=== PATIENT | female | born 1990 | race African-American/Black ===

== ENCOUNTER 2016-05-25 14:05 | Emergency (ER) | payer SELFPAY ==
[~2016-05-25] VITALS: Ht 162.6 cm; Wt 90.0 kg
[~2016-05-25 14:05] MED LIST: ALBU0.086 INH; MONT10 PO; PRED5PAK PO; VENTAER INH
[2016-05-25 14:06] VITALS: BP 132/83; PULSE 84; RESP 20; TEMP 97.5; O2SAT 100
--- NOTE | 2016-05-25 14:18 | PD ---
HPI Chief Complaint: Skin Problem Time Seen by Provider: 14:16 Travel History International Travel<30 days: No Contact w/Intl Traveler<30days: No Traveled to known affect area: No History of Present Illness HPI Patient comes in for evaluation of possible abscess to right groin that first started yesterday. Patient states that it started off as what she thought was a hair bump, but has progressively got bigger and more painful. Patient tried taking pain medication for this with no improvement of her symptoms. Denies doing anything else for it. Patient states she's had similar happen a long time ago. Denies any fevers, dysuria, , drainage from the lesion, vaginal discharge, or abdominal pain. PFSH Past Medical History Asthma: Yes Blood Disorders: No Cancer: No Cardiovascular Problems: No Chest Pain: Yes COPD: No Cerebrovascular Accident: No Diabetes: No (gestational) Diminished Hearing: No Endocrine: No Genitourinary: No Headaches: Yes Immune Disorder: No Musculoskeletal: No Neurologic: No Psychiatric: No Reproductive: No Respiratory: Yes (asthma) Migraines: No Seizures: No Sleep Apnea: No ?: Not LMP: 05/14/16 Menopausal: No : 2 Para: 2 Miscarriage: 0 : 0 Past Surgical History Abdominal Surgery: No Cardiac Surgery: No Section: Yes Ear Surgery: No Endocrine Surgery: No Eye Surgery: No Genitourinary Surgery: No Gynecologic Surgery: Yes (c-cection 3 mos ago) Oral Surgery: No Thoracic Surgery: No Other Surgery: No Social History Alcohol Use: No Tobacco Use: No Substance Use: No Allergies-Medications (Allergen,Severity, Reaction): Coded Allergies: No Known Allergies (Verified , 05/25/16) Reported Meds & Prescriptions Reported Meds & Active Scripts Active Naprosyn (Naproxen) 500 Mg Tab 500 Mg PO Q12HR PRN Keflex (Cephalexin) 500 Mg Cap 500 Mg PO Q8H Bactrim DS (Sulfamethoxazole-Trimethoprim) 800-160 Mg Tab 1 Tab PO BID Review of Systems Except as stated in HPI: all other systems reviewed are Neg Physical Exam Narrative GENERAL: Well-developed, overly nourished, in no acute distress, and non-ill appearing. SKIN: Warm and dry. Small approximately 2 cm in greatest diameter early abscess noted just superior to the right labia. It is tender to palpation, tender area with minimal fluctuation noted. There is no crepitus or drainage. Exam was performed presence of nurse staff industrialSHAN[employer] Valencia at all times. HEAD: Atraumatic. Normocephalic. EYES: Pupils equal and round. EOMI. No scleral icterus. No injection or drainage. ENT: No nasal bleeding or discharge. Mucous membranes pink and moist. NECK: Trachea midline. Supple. No nuclear rigidity. RESPIRATORY: No accessory muscle use. No respiratory distress. MUSCULOSKELETAL: No obvious deformities. No clubbing. No cyanosis. No edema. Full range of motion. NEUROLOGICAL: Awake and alert. No obvious cranial nerve deficits. Motor grossly within normal limits. Normal speech. PSYCHIATRIC: Appropriate mood and affect; insight and judgment normal. Data Data Last Documented VS Vital Signs Date Time Temp Pulse Resp B/P Pulse Ox O2 Delivery O2 Flow Rate FiO2 05/25/16 14:06 97.5 84 20 132/83 100 Room Air MDM Medical Decision Making Medical Screen Exam Complete: Yes Emergency Medical Condition: Yes Differential Diagnosis Abscess, cellulitis, folliculitis, other Narrative Course I&D was recommended, however patient is refusing and is wanting to try oral antibiotics and warm compresses first. Patient agrees to come back in 2 days for recheck or sooner if her symptoms get worse or develops fevers or for other concerns. The patient has no evidence of significant cellulitis. There is no evidence of necrotizing fasciitis/ Forneys at this time. The patient will be discharged on antibiotics. The patient was given signs and symptoms warnings for worsening infection, such as spreading of redness, increasing pain, and/or swelling, associated heat, or fever or feels worse, and instructed to return immediately if these signs or symptoms worsen. The patient is to return in 2 days for recheck. Sooner if worsens or as needed. The patient agrees with plan. Patient in no obvious distress upon re-evaluation. Patient was asked if they wanted to speak to my attending, which the patient did not wish to do at this time. Any questions/concerns in reference to patient diagnosis/condition discussed and clarified prior to patient's discharge. Reinforced sheer importance of close follow up with patient's primary physician or primary care clinic. Instructed patient to return to ED immediately, if symptoms return/ worsen. Pt showed understanding of above instructions. Further instructions and recommendations were detailed in discharge paperwork. Pt ambulated without difficulty out of ED at discharge. Diagnosis Primary Impression: Abscess Patient Instructions: Abscess (GEN), Abscess Follow-up (ED), General Instructions Additional Instructions: Follow-up here in 2 days for recheck. Take all medication as prescribed. Apply warm compresses to affected area multiple times daily. Return to the emergency department if symptoms get worse. Med/Other Pt SpecificInfo: Prescription(s) given Scripts Naproxen (Naprosyn)500 Mg [id number] Mg PO Q12HR PRN (PAIN SCALE 1 TO 10) #14 TAB Ref 0 Prov:Qi Wetzel MD 05/25/16 Cephalexin (Keflex)500 Mg [id number] Mg PO Q8H #30 CAP Ref 0 Prov:Qi Wetzel MD 05/25/16 Sulfamethoxazole-Trimethoprim (Bactrim DS)800-160 Mg Tab1 Tab PO BID #20 TAB Ref 0 Prov:Qi Wetzel MD 05/25/16 Disposition: 01 DISCHARGE HOME Condition: Stable Eder Miles May 25, 2016 14:17
[2016-05-25] MEDS ORDERED: NAPR500 PO (14:53)
[2016-05-25] MEDS ORDERED: BACT800T5 PO (14:53)
[2016-05-25] MEDS ORDERED: CEPH-460 PO (14:53)
== END 2016-05-25 15:35 | disposition home or self-care (01) ==
LOC: NEPB 14:05
DX: L02.214 Cutaneous abscess of groin (principal)
CPT/HCPCS: 99282

== ENCOUNTER 2017-07-19 07:55 | Emergency (ER) | payer SELFPAY ==
[2017-07-19] VITALS (8 sets, daily range): BP systolic 120–151; BP diastolic 58–92; PULSE 96–124; RESP 14–30; TEMP 98.4; O2SAT 94–98
[~2017-07-19] VITALS: Ht 162.6 cm; Wt 96.0 kg
[~2017-07-19 07:55] MED LIST changes: -ALBU0.086 INH; +BACT800T5 PO; +CEPH-460 PO; -MONT10 PO; +NAPR500 PO; -PRED5PAK PO; -VENTAER INH
[2017-07-19] MEDS ORDERED: ALBU0.08 NEB (08:05)
[2017-07-19] MEDS ORDERED: ADVA250A INH (08:12)
[2017-07-19] MEDS ORDERED: predniSONE 20 MG TAB PO ONE (08:15)
[2017-07-19] MEDS ORDERED: SODIUM CHLORIDE 0.9% FLUSH 10 ML FLUSH IVF PRN (08:15)
[2017-07-19] MEDS: RESP: ALBUTEROL 2.5 MG/IPRATROPIUM 0.5 MG NEB (SCH) INH ×2 (08:15→08:24)
--- NOTE | 2017-07-19 08:15 | PD ---
HPI Chief Complaint: Respiratory Symptoms Time Seen by Provider: 08:09 Travel History International Travel<30 days: No Contact w/Intl Traveler<30days: No Traveled to known affect area: No History of Present Illness HPI Patient is a 27-year-old female with a history of asthma presents emergency department with shortness of breath for the past 36 hours. Patient states she been taking her inhalers as well as breathing treatments at home with minimal relief. She states that the last asthma exacerbation she had she ended up intubated. States symptoms are gradually worsening. No fevers. She denies any chest pain abdominal pain nausea or vomiting. States symptoms are moderate , worsening over the past 36 hours, context as above [facility] Past Medical History Asthma: Yes Blood Disorders: No Cancer: No Cardiovascular Problems: No Chest Pain: Yes COPD: No Cerebrovascular Accident: No Diminished Hearing: No Endocrine: No Genitourinary: No Headaches: Yes Immune Disorder: No Musculoskeletal: No Neurologic: No Psychiatric: No Reproductive: No Respiratory: Yes (asthma) Migraines: No Seizures: No Sleep Apnea: No ?: Not LMP: 07/17/17 Menopausal: No : 2 Para: 2 Miscarriage: 0 : 0 Past Surgical History Abdominal Surgery: No Cardiac Surgery: No Section: Yes (X 1) Ear Surgery: No Endocrine Surgery: No Eye Surgery: No Genitourinary Surgery: No Gynecologic Surgery: Yes Oral Surgery: No Thoracic Surgery: No Other Surgery: No Social History Alcohol Use: No Tobacco Use: No Substance Use: No Allergies-Medications (Allergen,Severity, Reaction): Coded Allergies: No Known Allergies (Verified Adverse Reaction, Unknown, 07/19/17) Reported Meds & Prescriptions Reported Meds & Active Scripts Active Prednisone 20 Mg Tab 60 Mg PO DAILY 5 Days Reported Advair Diskus Inh (Fluticasone-Salmeterol Inh) 250-50 Mcg/Blist Aer 1 Puff INH BID PRN Rinse mouth after use. Albuterol Neb (Albuterol Sulfate) 2.5 Mg/3 Ml Neb 2.5 Mg NEB Q4HR NEB PRN Review of Systems Except as stated in HPI: all other systems reviewed are Neg Physical Exam Narrative GENERAL: Well-developed well-nourished, no obvious distress. SKIN: Focused skin assessment warm/dry. HEAD: Atraumatic. Normocephalic. EYES: Pupils equal and round. No scleral icterus. No injection or drainage. ENT: No nasal bleeding or discharge. Mucous membranes pink and moist. NECK: Trachea midline. No JVD. CARDIOVASCULAR: Regular rate and rhythm. No murmur appreciated. RESPIRATORY: No accessory muscle use. Expiratory wheezing and rhonchi worse than inspiratory, air entry is good bilaterally. Breath sounds equal bilaterally. No retractions apparent. The patient is mildly tachypneic. GASTROINTESTINAL: Abdomen soft, non-tender, nondistended. Hepatic and splenic margins not palpable. MUSCULOSKELETAL: No obvious deformities. No clubbing. No cyanosis. No edema. NEUROLOGICAL: Awake and alert. No obvious cranial nerve deficits. Motor grossly within normal limits. Normal speech. PSYCHIATRIC: Appropriate mood and affect; insight and judgment normal. Data Data Last Documented VS Vital Signs Date Time Temp Pulse Resp B/P (MAP) Pulse Ox O2 Delivery O2 Flow Rate FiO2 07/19/17 13:41 07/19/17 12:00 96 14 98 Nasal Cannula 2.00 07/19/17 07:56 98.4 Orders Orders Electrocardiogram (07/19/17 08:13) Complete Blood Count With Diff (07/19/17 08:13) Comprehensive Metabolic Panel (07/19/17 08:13) Chest, Single Ap (07/19/17 08:13) Ecg Monitoring (07/19/17 08:13) Iv Access Insert/Monitor (07/19/17 08:13) Oximetry (07/19/17 08:13) Oxygen Administration (07/19/17 08:13) Prednisone (Deltasone) (07/19/17 08:15) Albuterol-Ipratropium Neb (Duoneb Neb) (07/19/17 08:15) Sodium Chloride 0.9% Flush (Ns Flush) (07/19/17 08:15) Magnesium Sulfate 1 Gm Premix (Magnesium (07/19/17 08:30) Albuterol-Ipratropium Neb (Duoneb Neb) (07/19/17 11:15) Ed Discharge Order (07/19/17 12:10) Labs Laboratory Tests Test 07/19/17 08:25 White Blood Count 13.5 TH/MM3 Red Blood Count 4.31 MIL/MM3 Hemoglobin 12.4 GM/DL Hematocrit 37.2 % Mean Corpuscular Volume 86.3 FL Mean Corpuscular Hemoglobin 28.7 PG Mean Corpuscular Hemoglobin Concent 33.2 % Red Cell Distribution Width 14.6 % Platelet Count 290 TH/MM3 Mean Platelet Volume 7.7 FL Neutrophils (%) (Auto) 62.0 % Lymphocytes (%) (Auto) 25.2 % Monocytes (%) (Auto) 5.1 % Eosinophils (%) (Auto) 6.9 % Basophils (%) (Auto) 0.8 % Neutrophils # (Auto) 8.4 TH/MM3 Lymphocytes # (Auto) 3.4 TH/MM3 Monocytes # (Auto) 0.7 TH/MM3 Eosinophils # (Auto) 0.9 TH/MM3 Basophils # (Auto) 0.1 TH/MM3 CBC Comment DIFF FINAL Differential Comment Blood Urea Nitrogen 11 MG/DL Creatinine 0.88 MG/DL Random Glucose 120 MG/DL Total Protein 7.8 GM/DL Albumin 3.8 GM/DL Calcium Level 8.6 MG/DL Alkaline Phosphatase 78 U/L Aspartate Amino Transf (AST/SGOT) 16 U/L Alanine Aminotransferase (ALT/SGPT) 15 U/L Total Bilirubin 0.2 MG/DL Sodium Level 139 MEQ/L Potassium Level 4.3 MEQ/L Chloride Level 107 MEQ/L Carbon Dioxide Level 24.9 MEQ/L Anion Gap 7 MEQ/L Estimat Glomerular Filtration Rate 92 ML/MIN MDM Medical Decision Making Medical Screen Exam Complete: Yes Emergency Medical Condition: Yes Interpretation(s) Patient's EKG shows sinus tachycardia with normal axis normal R-wave progression. No concerning ST segment changes. Intervals otherwise within normal limits. This is a normal EKG except for rate. Differential Diagnosis Asthma exacerbation, pneumonia, CHF. Narrative Course Patient room to the emergency department, course expiratory wheezes and rhonchi , it is clearing with DuoNeb treatments. She was observed in the emergency department for several hours, she is gradually showing great improvement, her saturations have improved to 96% on room air, she was given magnesium and steroids as well, my second reassessment she is sleeping soundly arouses to voice states she is feeling much better would like to go home. She still has some expiratory wheezing but her air entry is significantly improved. Discussed with the patient steroids as well as dramatic management with albuterol and she has both an inhaler and nebulizer fluid at home. Discussed returning to criteria follow-up with a primary care physician. She is stable for discharge. Diagnosis Primary Impression: Asthma exacerbation Qualified Codes: J45.901 - Unspecified asthma with (acute) exacerbation Additional Instructions: Follow-up with your primary care physician on Friday or the [facility] Med/Other Pt SpecificInfo: Prescription(s) given Scripts Prednisone (Prednisone) 20 Mg Tab 60 MG PO DAILY for 5 Days, #15 TAB 0 Refills Prov: Alex Murrell MD 07/19/17 Disposition: 01 DISCHARGE HOME Condition: Stable Alex Murrell MD Jul 19, 2017 08:15
[2017-07-19 08:32] LABS: AUTOMATED NEUTROPHIL # 8.4 TH/MM3 (1.8-7.7); BASOPHIL # 0.1 TH/MM3 (0-0.2); BASOPHIL % 0.8 % (0.0-2.0); EOSINOPHIL # 0.9 TH/MM3 (0-0.4); EOSINOPHIL % 6.9 % (0.0-4.0); HEMATOCRIT 37.2 % (35.0-46.0); HEMOGLOBIN 12.4 GM/DL (11.6-15.3); LYMPH % 25.2 % (9.0-44.0); LYMPHOCYTE # 3.4 TH/MM3 (1.0-4.8); MEAN CELL VOLUME 86.3 FL (80.0-100.0); MEAN CORPUSCULAR HEMOGLOBIN 28.7 PG (27.0-34.0); MEAN CORPUSCULAR HGB CONC 33.2 % (32.0-36.0); MEAN PLATELET VOLUME 7.7 FL (7.0-11.0); MONO % 5.1 % (0.0-8.0); MONOCYTE # 0.7 TH/MM3 (0-0.9); PLATELET COUNT 290 TH/MM3 (150-450); RED BLOOD COUNT 4.31 MIL/MM3 (4.00-5.30); RED CELL DISTRIBUTION WIDTH 14.6 % (11.6-17.2); WHITE BLOOD COUNT 13.5 TH/MM3 (4.0-11.0)
[2017-07-19] MEDS: MAGNESIUM SULFATE 1 GM PREMIX 100 ML IV SCH ×2 (08:35→09:45)
--- NOTE | 2017-07-19 08:45 | RADRPT ---
EXAM DATE/TIME: 07/19/2017 08:30 [facility] COMPARISON: CHEST SINGLE AP, December 01, 2015, 15:28. INDICATIONS : Wheezing. Chest pain. MEDICAL HISTORY : Asthma. SURGICAL HISTORY : None. ENCOUNTER: Initial ACUITY: 2 days PAIN SCORE: 7/10 LOCATION: Bilateral chest FINDINGS: A single view of the chest demonstrates the lungs to be symmetrically aerated without evidence of mas s, infiltrate or effusion. The cardiomediastinal contours are unremarkable. Osseous structures are intact. Overlying electrocardiogram leads and oxygen tubing are again noted. CONCLUSION: No acute disease. There is no evidence of pneumonia. Jb Rivera MD on July 19, 2017 at 8:42 Board Certified Radiologist. This report was verified electronically.
[2017-07-19 08:50] LABS: ALBUMIN 3.8 GM/DL (3.4-5.0); ALT (GPT) 15 U/L (10-53); AST (GOT) 16 U/L (15-37); BICARBONATE 24.9 MEQ/L (21.0-32.0); BLOOD UREA NITROGEN 11 MG/DL (7-18); CALCIUM 8.6 MG/DL (8.5-10.1); CHLORIDE 107 MEQ/L (98-107); CREATININE 0.88 MG/DL (0.50-1.00); GLOMERULAR FILTRATION RATE 92 ML/MIN (>89); GLUCOSE,RANDOM 120 MG/DL (74-106); SODIUM (NA) 139 MEQ/L (136-145)
[2017-07-19 08:52] LABS: ALKALINE PHOSPHATASE 78 U/L (45-117); TOTAL BILIRUBIN ADULT 0.2 MG/DL (0.2-1.0); TOTAL PROTEIN 7.8 GM/DL (6.4-8.2)
[2017-07-19] MEDS ORDERED: RESP: ALBUTEROL 2.5 MG/IPRATROPIUM 0.5 MG NEB (SCH) NEB ONE (11:15)
[2017-07-19] MEDS ORDERED: PRED20 PO (12:11)
--- NOTE | 2017-07-19 16:58 | EKG ---
Date Performed: 07/19/2017 Time Performed: 08:51:31 PTAGE: 27 years EKG: SINUS TACHYCARDIA ABNORMAL RHYTHM ECG Since the PREVIOUS TRACING , no significant change noted PREVIOUS TRACIN03/28/2015 10.57 DOCTOR: Cameron Gaffney Interpretating Date/Time 07/19/2017 16:54:58
== END 2017-07-19 13:55 | disposition home or self-care (01) ==
LOC: NEPE 07:55
DX: J45.901 Unspecified asthma with (acute) exacerbation (principal); R00.0 Tachycardia, unspecified; R94.31 Abnormal electrocardiogram [ECG] [EKG]
CPT/HCPCS: 71045; 80053; 85025; 93005; 94640; 94664; 96365; 99285; J3475; J7512

== ENCOUNTER 2017-08-02 22:07 | Inpatient (IN) | payer SELFPAY ==
[~2017-08-02] VITALS: Ht 162.6 cm; Wt 100.6 kg
[~2017-08-02 22:07] MED LIST changes: +ADVA250A INH; +ALBU0.08 NEB; -BACT800T5 PO; -CEPH-460 PO; -NAPR500 PO; +PRED20 PO
[2017-08-02 22:25] VITALS: BP 154/93; PULSE 126; RESP 22; TEMP 98.9; O2SAT 97
[2017-08-02 22:26] VITALS: O2SAT 97
[2017-08-02] MEDS ORDERED: methylPREDNISolone SOD SUCC 125 MG/2 ML VIAL IV PUSH ONE (22:45)
[2017-08-02] MEDS ORDERED: SODIUM CHLORIDE 0.9% FLUSH 10 ML FLUSH IVF PRN (22:45)
--- NOTE | 2017-08-02 22:48 | PD ---
HPI Chief Complaint: Respiratory Symptoms Time Seen by Provider: 22:39 Travel History International Travel<30 days: No Contact w/Intl Traveler<30days: No Traveled to known affect area: No History of Present Illness HPI 27-year-old female complains of coughing congestion and shortness of breath. Patient has a history of asthma. Patient has been using nebulizer at home and inhaler at work. Patient was at work this evening and started having increasing shortness of breath and wheezing. Patient denies any headache. Patient denies any chest pain. Patient denies abdominal pain. Patient denies any fever chills. Patient denies any chance of being . PFSH Past Medical History Asthma: Yes Blood Disorders: No Cancer: No Cardiovascular Problems: No Chest Pain: Yes COPD: No Cerebrovascular Accident: No Diminished Hearing: No Endocrine: No Genitourinary: No Headaches: Yes Immune Disorder: No Musculoskeletal: No Neurologic: No Psychiatric: No Reproductive: No Respiratory: Yes (asthma) Immunizations Current: Yes Migraines: No Seizures: No Sleep Apnea: No ?: Not LMP: 07/22/17 Menopausal: No : 2 Para: 2 Miscarriage: 0 : 0 Past Surgical History Abdominal Surgery: No Cardiac Surgery: No Section: Yes (X 1) Ear Surgery: No Endocrine Surgery: No Eye Surgery: No Genitourinary Surgery: No Gynecologic Surgery: Yes Oral Surgery: No Thoracic Surgery: No Other Surgery: Yes ( Nov 2014 ) Social History Alcohol Use: Yes Tobacco Use: No Substance Use: No Allergies-Medications (Allergen,Severity, Reaction): Coded Allergies: No Known Allergies (Verified Adverse Reaction, Unknown, 08/02/17) Reported Meds & Prescriptions Reported Meds & Active Scripts Active Reported Advair Diskus Inh (Fluticasone-Salmeterol Inh) 250-50 Mcg/Blist Aer 1 Puff INH BID PRN Rinse mouth after use. Albuterol Neb (Albuterol Sulfate) 2.5 Mg/3 Ml Neb 2.5 Mg NEB Q4HR NEB PRN Review of Systems General / Constitutional: No: Fever Eyes: No: Visual changes HENT: No: Headaches Cardiovascular: No: Chest Pain or Discomfort Respiratory: Positive: Cough, Shortness of Breath, Wheezing Gastrointestinal: No: Abdominal Pain Genitourinary: No: Dysuria Musculoskeletal: No: Pain Skin: No Rash Neurologic: No: Weakness Psychiatric: No: Depression Endocrine: No: Polydipsia Hematologic/Lymphatic: No: Easy Bruising Physical Exam Narrative GENERAL: Well-nourished, well-developed patient. SKIN: Focused skin assessment warm/dry. HEAD: Normocephalic. EYES: No scleral icterus. No injection or drainage. NECK: Supple, trachea midline. No JVD or lymphadenopathy. CARDIOVASCULAR: Regular rate and rhythm without murmurs, gallops, or rubs. RESPIRATORY: Patient has moderate expiratory wheezes bilaterally. No rhonchi. GASTROINTESTINAL: Abdomen soft, non-tender, nondistended. MUSCULOSKELETAL: No cyanosis, or edema. BACK: Nontender without obvious deformity. No CVA tenderness. Data Data Last Documented VS Vital Signs Date Time Temp Pulse Resp B/P (MAP) Pulse Ox O2 Delivery O2 Flow Rate FiO2 08/02/17 23:39 18 98 Nasal Cannula 2.00 08/02/17 22:25 98.9 126 154/93 (113) Orders Orders Sodium Chloride 0.9% Flush (Ns Flush) (08/02/17 22:45) Methylprednisolone So Succ Inj (Solumedr (08/02/17 22:45) Albuterol-Ipratropium Neb (Duoneb Neb) (08/02/17 22:45) Complete Blood Count With Diff (08/02/17 23:38) Basic Metabolic Panel (Bmp) (08/02/17 23:38) Chest, Single Ap (08/02/17 23:38) Iv Access Insert/Monitor (08/02/17 23:38) Ecg Monitoring (08/02/17 23:38) Oximetry (08/02/17 23:38) Ceftriaxone Inj (Rocephin Inj) (08/03/17 00:00) Azithromycin (Zithromax) (08/03/17 00:00) Labs Laboratory Tests Test 08/02/17 23:35 White Blood Count 19.0 TH/MM3 Red Blood Count 4.52 MIL/MM3 Hemoglobin 12.7 GM/DL Hematocrit 38.8 % Mean Corpuscular Volume 85.8 FL Mean Corpuscular Hemoglobin 28.2 PG Mean Corpuscular Hemoglobin Concent 32.8 % Red Cell Distribution Width 14.4 % Platelet Count 295 TH/MM3 Mean Platelet Volume 8.1 FL Neutrophils (%) (Auto) 56.6 % Lymphocytes (%) (Auto) 33.7 % Monocytes (%) (Auto) 4.2 % Eosinophils (%) (Auto) 5.3 % Basophils (%) (Auto) 0.2 % Neutrophils # (Auto) 10.7 TH/MM3 Lymphocytes # (Auto) 6.4 TH/MM3 Monocytes # (Auto) 0.8 TH/MM3 Eosinophils # (Auto) 1.0 TH/MM3 Basophils # (Auto) 0.0 TH/MM3 CBC Comment AUTO DIFF Blood Urea Nitrogen 10 MG/DL Creatinine 0.98 MG/DL Random Glucose 101 MG/DL Calcium Level 9.0 MG/DL Sodium Level 142 MEQ/L Potassium Level 4.1 MEQ/L Chloride Level 105 MEQ/L Carbon Dioxide Level 29.9 MEQ/L Anion Gap 7 MEQ/L Estimat Glomerular Filtration Rate 81 ML/MIN MDM Medical Decision Making Medical Screen Exam Complete: Yes Emergency Medical Condition: Yes Interpretation(s) 12:38 AM. Chest x-ray shows no acute consolidation. CBC with WBC 19.0. Normal differential. BMP within normal limits. Differential Diagnosis Differential diagnosis including acute exacerbation asthma, bronchitis, pneumonia, pneumothorax. Narrative Course 27-year-old female with wheezing and shortness of breath. History of asthma. Albuterol with Atrovent unit dose treatment 3. Solu-Medrol 125 mg IV. 23:39 PM. Reexamination patient still has moderate amount of wheezes bilaterally and shortness of breath. Patient will be admitted. Diagnosis Primary Impression: Acute asthma exacerbation Qualified Codes: J45.41 - Moderate persistent asthma with (acute) exacerbation Admitting Information Admitting Physician Requests: Admit Maxim Mccray MD August 02, 2017 22:48
[2017-08-02] MEDS: RESP: ALBUTEROL 2.5 MG/IPRATROPIUM 0.5 MG NEB (SCH) INH (22:49)
[2017-08-02 22:52] VITALS: O2SAT 99
[2017-08-02 23:39] VITALS: RESP 18; O2SAT 98
[2017-08-03] VITALS (13 sets, daily range): BP systolic 118–149; BP diastolic 57–78; PULSE 92–120; RESP 18–20; TEMP 97.5–98.2; O2SAT 94–100
[2017-08-03] MEDS ORDERED: AZITHROMYCIN 250 MG TAB PO ONE
[2017-08-03] MEDS ORDERED: cefTRIAXone INJ 1,000 MG in SODIUM CHLORIDE 0.9% INJ 100 ML IV ONE ×2
[2017-08-03 00:06] LABS: AUTOMATED NEUTROPHIL # 10.7 TH/MM3 (1.8-7.7); BASOPHIL % 0.2 % (0.0-2.0); EOSINOPHIL % 5.3 % (0.0-4.0); HEMATOCRIT 38.8 % (35.0-46.0); HEMOGLOBIN 12.7 GM/DL (11.6-15.3); LYMPH % 33.7 % (9.0-44.0); LYMPHOCYTE # 6.4 TH/MM3 (1.0-4.8); MEAN CELL VOLUME 85.8 FL (80.0-100.0); MEAN CORPUSCULAR HEMOGLOBIN 28.2 PG (27.0-34.0); MEAN CORPUSCULAR HGB CONC 32.8 % (32.0-36.0); MEAN PLATELET VOLUME 8.1 FL (7.0-11.0); MONO % 4.2 % (0.0-8.0); MONOCYTE # 0.8 TH/MM3 (0-0.9); NEUT % 56.6 % (16.0-70.0); PLATELET COUNT 295 TH/MM3 (150-450); RED BLOOD COUNT 4.52 MIL/MM3 (4.00-5.30); RED CELL DISTRIBUTION WIDTH 14.4 % (11.6-17.2)
[2017-08-03 00:22] LABS: BICARBONATE 29.9 MEQ/L (21.0-32.0); CREATININE 0.98 MG/DL (0.50-1.00)
--- NOTE | 2017-08-03 00:25 | RADRPT ---
EXAM DATE/TIME: 08/02/2017 23:37 [facility] COMPARISON: CHEST SINGLE AP, July 19, 2017, 8:30. INDICATIONS : Shortness of breath. MEDICAL HISTORY : Asthma, Gestational diabetes. SURGICAL HISTORY : section. ENCOUNTER: Initial ACUITY: 1 day PAIN SCORE: 6/10 LOCATION: Bilateral chest FINDINGS: A single view of the chest demonstrates the lungs to be symmetrically aerated without evidence of mas s, infiltrate or effusion. The cardiomediastinal contours are unremarkable. Osseous structures are intact. CONCLUSION: No acute disease. Conrad Mishra MD on August 03, 2017 at 0:21 Board Certified Radiologist. This report was verified electronically.
[2017-08-03] MEDS ORDERED: ACETAMINOPHEN/HYDROcodone 325 MG/5 MG TAB PO PRN (01:00)
[2017-08-03] MEDS ORDERED: ONDANSETRON HCL 4 MG/2 ML VIAL IVP PRN (01:00)
[2017-08-03] MEDS ORDERED: SENNOSIDES 8.6 MG TAB PO PRN (01:00)
[2017-08-03] MEDS ORDERED: BISACODYL 10 MG SUPP RECTAL PRN (01:00)
[2017-08-03] MEDS ORDERED: ACETAMINOPHEN/HYDROcodone 325 MG/10 MG TAB PO PRN (01:00)
[2017-08-03] MEDS ORDERED: RESP: ALBUTEROL 2.5 MG/3 ML NEB (PRN) NEB (01:00)
[2017-08-03] MEDS ORDERED: ACETAMINOPHEN 325 MG TAB PO PRN (01:00)
[2017-08-03] MEDS ORDERED: LACTULOSE SYRUP 20 GM/30 ML CUP PO PRN (01:00)
[2017-08-03] MEDS ORDERED: MAGNESIUM HYDROXIDE SUSP 30 ML CUP PO PRN (01:00)
[2017-08-03 01:56] LABS: BASOPHILS 2 % (0-2); LYMPHOCYTES 27 % (9-44); MONOCYTES 1 % (0-8); NEUTROPHIL # MANUAL DIFF 12.5 TH/MM3 (1.8-7.7); POLYS (SEG NEUTROPHILS) 66 % (16-70)
--- NOTE | 2017-08-03 04:10 | HHI.HP ---
[facility] Service [facility] [place] [facility] Primary Care Physician No Primary Care Physician Admission Diagnosis Acute exacerbation asthma Diagnoses: (1) Acute asthma exacerbation Chief Complaint: Shortness of breath Travel History International Travel<30 Days: No Contact w/Intl Traveler <30 Da: No Traveled to Known Affected Are: No History of Present Illness Mrs. Christianson is a pleasant 27-year-old female with a history of asthma who presented to the emergency room on 08/02/2017 complaining of shortness of breath. [facility]. The patient is seen in her hospital room. She reports that she was at work cleaning something and could smell the fumes of a cleaning product despite the mask she was wearing. She states she had a rapid deterioration of respiratory status following this and developed severe shortness of breath, coughing, and wheezing that did not improve despite treatment with inhaler. Review of Systems Except as stated in HPI: all other systems reviewed are Neg Past Family Social History Past Medical History Asthma Gestational diabetes . Past Surgical History November 2014 . Reported Medications Reported Meds & Active Scripts Active Reported Advair Diskus Inh (Fluticasone-Salmeterol Inh) 250-50 Mcg/Blist Aer 1 Puff INH BID PRN Rinse mouth after use. Albuterol Neb (Albuterol Sulfate) 2.5 Mg/3 Ml Neb 2.5 Mg NEB Q4HR NEB PRN . Allergies: Coded Allergies: No Known Allergies (Verified Adverse Reaction, Unknown, 08/02/17) Family History Denies any family history of asthma . Social History Tobacco: Denies Alcohol: Occasional social drink -wine Illicit Drugs: Denies . Physical Exam Vital Signs Vital Signs Date Time Temp Pulse Resp B/P (MAP) Pulse Ox O2 Delivery O2 Flow Rate FiO2 08/03/17 01:25 98.2 92 20 118/59 (78) 97 08/03/17 00:00 98 18 137/69 (91) 100 Nasal Cannula 2.00 08/02/17 23:39 18 98 Nasal Cannula 2.00 08/02/17 22:52 99 Nasal Cannula 3.00 08/02/17 22:26 97 Nasal Cannula 3.00 08/02/17 22:25 98.9 126 22 154/93 (113 97 Physical Exam CONSTITUTIONAL: This is an obese female patient, in no apparent distress. INTEGUMENTARY: No rashes, ecchymoses or lesions. Cool and dry. HEAD: Atraumatic. Normocephalic. EYES: No scleral icterus. No injection or drainage. ENT: Nose without bleeding, purulent drainage. NECK: Trachea midline. No JVD. CARDIOVASCULAR: Regular rate and rhythm without murmurs, gallops, or rubs. RESPIRATORY: Diffuse inspiratory and expiratory wheezes anteriorly and posteriorly throughout lung batista. GASTROINTESTINAL: Abdomen soft, non-tender, nondistended. No guarding. MUSCULOSKELETAL: Extremities without clubbing, cyanosis, or edema. No calf tenderness. NEUROLOGICAL: Awake and alert. Motor and sensory grossly within normal limits. Normal speech. . Laboratory Laboratory Tests Test 08/02/17 23:35 White Blood Count 19.0 Red Blood Count 4.52 Hemoglobin 12.7 Hematocrit 38.8 Mean Corpuscular Volume 85.8 Mean Corpuscular Hemoglobin 28.2 Mean Corpuscular Hemoglobin Concent 32.8 Red Cell Distribution Width 14.4 Platelet Count 295 Mean Platelet Volume 8.1 Neutrophils (%) (Auto) 56.6 Lymphocytes (%) (Auto) 33.7 Monocytes (%) (Auto) 4.2 Eosinophils (%) (Auto) 5.3 Basophils (%) (Auto) 0.2 Neutrophils # (Auto) 10.7 Lymphocytes # (Auto) 6.4 Monocytes # (Auto) 0.8 Eosinophils # (Auto) 1.0 Basophils # (Auto) 0.0 CBC Comment AUTO DIFF Differential Total Cells Counted 100 Neutrophils % (Manual) 66 Lymphocytes % 27 Monocytes % 1 Eosinophils % 4 Basophils % 2 Neutrophils # (Manual) 12.5 Differential Comment FINAL DIFF MANUAL Platelet Estimate NORMAL Platelet Morphology Comment NORMAL Basophilic Stippling FAINT Blood Urea Nitrogen 10 Creatinine 0.98 Random Glucose 101 Calcium Level 9.0 Sodium Level 142 Potassium Level 4.1 Chloride Level 105 Carbon Dioxide Level 29.9 Anion Gap 7 Estimat Glomerular Filtration Rate 81 Result Diagram: 08/02/17 8085 08/02/17 2337 Imaging CXR: No acute disease Caprini VTE Risk Assessment Caprini VTE Risk Assessment: Mod/High Risk (score >= 2) Caprini Risk Assessment Model Point Value = 1 Point Value = 2 Point Value = 3 Point Value = 5 Age 41-60 Minor surgery BMI > 25 kg/m2 Swollen legs Varicose veins or History of unexplained or recurrent spontaneous Oral contraceptives or hormone replacement Sepsis (< 1 month) Serious lung disease, including pneumonia (< 1 month) Abnormal pulmonary function Acute myocardial infarction Congestive heart failure (< 1 month) History of inflammatory bowel disease Medical patient at bed rest Age 61-74 Arthroscopic surgery Major open surgery (> 45 min) Laparoscopic surgery (> 45 min) Malignancy Confined to bed (> 72 hours) Immobilizing plaster cast Central venous access Age >= 75 History of VTE Family history of VTE Factor V Leiden Prothrombin [id number] Lupus anticoagulant Anticardiolipin antibodies Elevated serum homocysteine Heparin-induced thrombocytopenia Other congenital or acquired thrombophilia Stroke (< 1 month) Elective arthroplasty Hip, pelvis, or leg fracture Acute spinal cord injury (< 1 month) Prophylaxis Regimen Total Risk Factor Score Risk Level Prophylaxis Regimen 0-1 Low Early ambulation 2 Moderate Order ONE of the following: *Sequential Compression Device (SCD) *Heparin 5000 units SQ BID 3-4 Higher Order ONE of the following medications: *Heparin 5000 units SQ TID *Enoxaparin/Lovenox 40 mg SQ daily (WT < 150 kg, CrCl > 30 mL/min) *Enoxaparin/Lovenox 30 mg SQ daily (WT < 150 kg, CrCl > 10-29 mL/min) *Enoxaparin/Lovenox 30 mg SQ BID (WT < 150 kg, CrCl > 30 mL/min) AND/OR *Sequential Compression Device (SCD) 5 or more Highest Order ONE of the following medications: *Heparin 5000 units SQ TID (Preferred with Epidurals) *Enoxaparin/Lovenox 40 mg SQ daily (WT < 150 kg, CrCl > 30 mL/min) *Enoxaparin/Lovenox 30 mg SQ daily (WT < 150 kg, CrCl > 10-29 mL/min) *Enoxaparin/Lovenox 30 mg SQ BID (WT < 150 kg, CrCl > 30 mL/min) AND *Sequential Compression Device (SCD) Assessment and Plan Problem List: (1) Acute asthma exacerbation ICD Code: J45.901 - Unspecified asthma with (acute) exacerbation Status: Acute Assessment and Plan Mrs. Christianson is a pleasant 27-year-old female with a history of asthma who presented to the emergency room on 08/02/2017 complaining of shortness of breath. She was admitted to [facility] for management of acute asthma exacerbation. Acute asthma exacerbation - Patient with diffuse wheezing on examination - does not appear in respiratory distress though - Instructed nursing to call respiratory therapy for stat albuterol treatment - Chest x-ray personally reviewed and shows no acute disease - Supplemental oxygen as needed titrated to maintain oxygen saturation greater than 92% - Solu-Medrol 40 mg IV every 6 hours - Continue home Advair - Albuterol nebulizer every 4 hours while awake and every 2 hours as needed for shortness of breath DVT prophylaxis - SCDs/teds Discussed Condition With Patient, RN, and Dr. Cummings . Physician Certification 2 Midnight Certification Type: Admission for Inpatient Services Order for Inpatient Services The services are ordered in accordance with Medicare regulations or non- Medicare payer requirements, as applicable. In the case of services not specified as inpatient-only, they are appropriately provided as inpatient services in accordance with the 2-midnight benchmark. Estimated LOS (days): 2 days is the estimated time the patient will need to remain in the hospital, assuming treatment plan goals are met and no additional complications. Post-Hospital Plan: Home Problem Qualifiers (1) Acute asthma exacerbation: Qualified Codes: J45.41 - Moderate persistent asthma with (acute) exacerbation Vangie Portillo August 03, 2017 04:10
[2017-08-03] MEDS: methylPREDNISolone SOD SUCC 40 MG/1 ML VIAL IV PUSH SCH ×4 (04:44→23:40)
[2017-08-03] MEDS: SODIUM CHLORIDE 0.9% FLUSH 10 ML FLUSH IV FLUSH PRN ×2 (04:45→23:40)
[2017-08-03] MEDS ORDERED: methylPREDNISolone SOD SUCC 40 MG/1 ML VIAL IV PUSH SCH (06:00)
[2017-08-03] MEDS: SODIUM CHLORIDE 0.9% FLUSH 10 ML FLUSH IV FLUSH SCH ×2 (07:56→20:01)
[2017-08-03] MEDS: DOCUSATE SODIUM 50 MG/SENNA 8.6 MG TAB PO SCH ×2 (07:56→19:59)
[2017-08-03] MEDS: RESP: ALBUTEROL 2.5 MG/3 ML NEB (SCH) NEB ×3 (08:01→15:44)
[2017-08-03] MEDS: BUDESONIDE-FORMOTEROL 160/4.5 MCG INHALER INH SCH ×2 (09:00→20:02)
[2017-08-03 14:22] LABS: BICARBONATE 22.5 MEQ/L (21.0-32.0); CALCIUM 8.9 MG/DL (8.5-10.1); CREATININE 1.08 MG/DL (0.50-1.00); MAGNESIUM 1.7 MG/DL (1.5-2.5); PHOSPHORUS 1.9 MG/DL (2.5-4.9)
--- NOTE | 2017-08-03 20:13 | MB ---
cc: Dawson Ramon MD DATE: 08/03/2017 REASON FOR CONSULTATION: Asthma with exacerbation. HISTORY OF PRESENT ILLNESS: This is a 27-year-old female with a history of asthma since childhood, was at work and has been experiencing increasing shortness of breath, wheezing and dyspnea in spite of being on a regular inhalers, which include a steroid inhaler and Ventolin inhaler. The patient had tightness in her chest. She was unable to catch her breath and states that none of her medications are helping; thus, she came to the emergency room and was given IV Solu-Medrol and nebulized DuoNeb solution and admitted. Chest x-ray that was done today shows no active pulmonary infiltrates. She has been started on antibiotic coverage. She denies any hemoptysis, but has a dry cough. 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 PAST MEDICAL HISTORY: Includes bronchial asthma, history of diabetes, and she had a 3 years ago. MEDICATION LIST: Advair Diskus 250/50 one puff b.i.d., albuterol inhaler p.r.n. ALLERGIES: NONE LISTED. FAMILY HISTORY: Noncontributory. HABITS: The patient does not smoke. Alcohol use, occasional. No illicit drugs that she knows of. SYSTEMS REVIEW: The patient is overweight. She has postnasal drip, cough and wheezing. She has epigastric distress and reflux. Denies leg swelling or calf muscle pain. No urinary symptoms. She has no skin lesions or joint pains. PHYSICAL EXAMINATION: GENERAL: This is a moderately obese, young lady who is alert, no acute distress. Mild pallor. No cyanosis or icterus, no lymphadenopathy. VITAL SIGNS: Blood pressure 120/60, pulse 90, respirations 22, temperature 97.2. HEENT: Head normocephalic. Pupils are reactive and equal. Nasal mucosa edematous. Throat was clear. Ears: No inflammation. NECK: No bruits, no thyroid enlargement, no lymphadenopathy. CHEST: Decreased breath sounds at the periphery. Expiratory wheezes in the upper lung batista. HEART: The heart sounds are regular S1, S2. No murmur. ABDOMEN: Soft, protuberant without masses. No organomegaly. EXTREMITIES: No lesions, no edema. Reflexes are 1+ with no gross motor deficits. SKIN: No lesions noted. IMPRESSION: 1. Asthmatic bronchitis. 2. Allergic rhinitis. PLAN: The patient is already on IV Solu-Medrol 40 mg q. 6 hours, which we will continue. Symbicort 160/4.5 mcg 2 puffs twice a day will be continued as well as DuoNeb solution as a nebulizer q. 4 hours. She has been given Zithromax 500 mg daily and we will give her 2 more doses. A bedside pulmonary function study will be done. Singulair 10 mg p.o. at bedtime was added, and the patient was advised to avoid exposure to fumes, dust and chemicals. Thank you, Dr. Galvez, for this consultation. V. Viola Ramon MD VJD/RACHEL , 06:57 PM , 08:12 PM
[2017-08-03] MEDS ORDERED: MONTELUKAST SODIUM 10 MG TAB PO SCH (21:00)
[2017-08-03] MEDS: RESP: LEVALBUTEROL HYDROCHLORIDE 1.25 MG/3 ML NEB (SCH) NEB (21:09)
[2017-08-04] VITALS (9 sets, daily range): BP systolic 113–127; BP diastolic 52–78; PULSE 88–103; RESP 16–20; TEMP 97.5–98; O2SAT 95–97
[2017-08-04] MEDS: methylPREDNISolone SOD SUCC 40 MG/1 ML VIAL IV PUSH SCH ×2 (05:13→11:45)
[2017-08-04 08:22] LABS: AUTOMATED NEUTROPHIL # 24.6 TH/MM3 (1.8-7.7); BASOPHIL # 0.1 TH/MM3 (0-0.2); BASOPHIL % 0.4 % (0.0-2.0); HEMATOCRIT 37.2 % (35.0-46.0); HEMOGLOBIN 12.1 GM/DL (11.6-15.3); LYMPH % 8.7 % (9.0-44.0); LYMPHOCYTE # 2.4 TH/MM3 (1.0-4.8); MEAN CELL VOLUME 85.5 FL (80.0-100.0); MEAN CORPUSCULAR HEMOGLOBIN 27.8 PG (27.0-34.0); MEAN CORPUSCULAR HGB CONC 32.5 % (32.0-36.0); MEAN PLATELET VOLUME 8.3 FL (7.0-11.0); MONO % 2.6 % (0.0-8.0); MONOCYTE # 0.7 TH/MM3 (0-0.9); NEUT % 88.3 % (16.0-70.0); PLATELET COUNT 288 TH/MM3 (150-450); RED BLOOD COUNT 4.35 MIL/MM3 (4.00-5.30); RED CELL DISTRIBUTION WIDTH 14.9 % (11.6-17.2); WHITE BLOOD COUNT 27.8 TH/MM3 (4.0-11.0)
[2017-08-04] MEDS: RESP: LEVALBUTEROL HYDROCHLORIDE 1.25 MG/3 ML NEB (SCH) NEB ×3 (08:42→15:16)
[2017-08-04 08:53] LABS: ALBUMIN 3.6 GM/DL (3.4-5.0); AST (GOT) 8 U/L (15-37); BICARBONATE 22.5 MEQ/L (21.0-32.0); BLOOD UREA NITROGEN 12 MG/DL (7-18); CALCIUM 9.2 MG/DL (8.5-10.1); CHLORIDE 103 MEQ/L (98-107); CREATININE 1.03 MG/DL (0.50-1.00); GLOMERULAR FILTRATION RATE 77 ML/MIN (>89); GLUCOSE,RANDOM 244 MG/DL (74-106); SODIUM (NA) 135 MEQ/L (136-145)
[2017-08-04 08:54] LABS: ALT (GPT) 15 U/L (10-53)
[2017-08-04 08:56] LABS: ALKALINE PHOSPHATASE 81 U/L (45-117); TOTAL BILIRUBIN ADULT 0.3 MG/DL (0.2-1.0); TOTAL PROTEIN 7.3 GM/DL (6.4-8.2)
[2017-08-04] MEDS: DOCUSATE SODIUM 50 MG/SENNA 8.6 MG TAB PO SCH (09:00)
[2017-08-04] MEDS: SODIUM CHLORIDE 0.9% FLUSH 10 ML FLUSH IV FLUSH SCH (09:00)
[2017-08-04] MEDS: BUDESONIDE-FORMOTEROL 160/4.5 MCG INHALER INH SCH (09:05)
--- NOTE | 2017-08-04 10:43 | EKG ---
Date Performed: 08/03/2017 Time Performed: 13:42:29 PTAGE: 27 years EKG: SINUS TACHYCARDIA ABNORMAL RHYTHM ECG Since the PREVIOUS TRACING , no significant change noted PREVIOUS TRACIN07/19/2017 08.51 DOCTOR: Antony Melton Interpretating Date/Time 08/04/2017 10:41:22
--- NOTE | 2017-08-04 12:32 | HHI.PR ---
Addendum to Inpatient Note Additional Information late entry addendum from 08/03: Patient seen and examined she is tachycardic, I switched albuterol to Xopenex evaluation and management for her persistent asthma Yeimi Arguello MD August 04, 2017 12:32
--- NOTE | 2017-08-04 13:01 | HHI.PR ---
Subjective Remarks Better today. Less wheezing. Cough is minimal. Off O2 Objective Vital Signs Date Time Temp Pulse Resp B/P (MAP) Pulse Ox O2 Delivery O2 Flow Rate FiO2 08/04/17 12:11 97 21 08/04/17 12:00 97.9 95 16 113/52 (72) 97 08/04/17 08:00 98.0 91 16 115/66 (82) 95 08/04/17 07:00 Room Air 08/04/17 04:00 97.5 95 20 127/78 (94) 97 08/04/17 03:44 88 08/04/17 00:00 97.9 103 20 121/63 (82) 96 08/03/17 23:42 106 08/03/17 21:10 100 08/03/17 20:00 Nasal Cannula 2.00 08/03/17 20:00 98.0 101 20 129/78 (95) 96 08/03/17 19:40 108 08/03/17 16:00 112 08/03/17 16:00 97.7 109 20 149/58 (88) 94 I/O 08/03/17 08/03/17 08/03/17 08/04/17 08/04/17 08/04/17 07:00 15:00 23:00 07:00 15:00 23:00 Intake Total 100 ml 960 ml 850 ml Balance 100 ml 960 ml 850 ml Intake Oral 960 ml 850 ml IV Total 100 ml # Voids 5 5 # Bowel Movements 0 1 Result Diagram: 08/04/17 0730 08/04/17 0730 Objective Remarks GENERAL: This is a moderately obese, young lady who is alert, no acute distress. No pallor. No cyanosis or icterus, no lymphadenopathy. HEENT: Head normocephalic. Pupils are reactive and equal. Nasal mucosa edematous. Throat was clear. Ears: No inflammation. NECK: No bruits, no thyroid enlargement, no lymphadenopathy. CHEST: Decreased breath sounds at the periphery. Expiratory wheezes in the upper lung batista. HEART: The heart sounds are regular S1, S2. No murmur. ABDOMEN: Soft, protuberant without masses. No organomegaly. EXTREMITIES: No lesions, no edema. Reflexes are 1+ with no gross motor deficits. Assessment and Plan Assessment and Plan IMPRESSION: 1. Asthmatic bronchitis. 2. Allergic rhinitis. Plan : 1. Wean off Steroids and switch to prednisone 40 mg daily and taper 2. Nebs qid , duoneb 3. D/C O2 4. PFT today 5. PO Zithromax for 2 days 6. Home anytime Dawson Ramon MD August 04, 2017 13:00
[2017-08-04] MEDS ORDERED: methylPREDNISolone SOD SUCC 40 MG/1 ML VIAL IV PUSH SCH (14:00)
--- NOTE | 2017-08-04 14:26 | HHI.PR ---
Subjective Remarks Patient stated she is breathing much better today Objective Vitals Vital Signs Date Time Temp Pulse Resp B/P (MAP) Pulse Ox O2 Delivery O2 Flow Rate FiO2 08/04/17 12:11 97 21 08/04/17 12:03 97 08/04/17 12:00 97.9 95 16 113/52 (72) 97 08/04/17 08:00 98.0 91 16 115/66 (82) 95 08/04/17 07:42 89 08/04/17 07:00 Room Air 08/04/17 04:00 97.5 95 20 127/78 (94) 97 08/04/17 03:44 88 08/04/17 00:00 97.9 103 20 121/63 (82) 96 08/03/17 23:42 106 08/03/17 21:10 100 08/03/17 20:00 Nasal Cannula 2.00 08/03/17 20:00 98.0 101 20 129/78 (95) 96 08/03/17 19:40 108 08/03/17 16:00 112 08/03/17 16:00 97.7 109 20 149/58 (88) 94 I/O 08/03/17 08/03/17 08/03/17 08/04/17 08/04/17 08/04/17 07:00 15:00 23:00 07:00 15:00 23:00 Intake Total 100 ml 960 ml 850 ml Balance 100 ml 960 ml 850 ml Intake Oral 960 ml 850 ml IV Total 100 ml # Voids 5 5 # Bowel Movements 0 1 Result Diagram: 08/04/17 0730 08/04/17 0730 Objective Remarks GENERAL: This is a well-nourished, well-developed patient, in no apparent distress. CARDIOVASCULAR: RRR, no gallops, or rubs. RESPIRATORY: Fair air entry bilaterally. No W, R, or R GASTROINTESTINAL: Abdomen soft, non-tender, nondistended. Positive bowel sounds MUSCULOSKELETAL: Extremities without clubbing, cyanosis, or edema. Pedal pulses appreciated NEUROLOGICAL: Awake and alert. Moves all extremity. Normal speech.no focal neurological deficit A/P Problem List: (1) Acute asthma exacerbation ICD Code: J45.901 - Unspecified asthma with (acute) exacerbation Status: Acute Assessment and Plan Mrs. Christianson is a pleasant 27-year-old female with a history of asthma who presented to the emergency room on 08/02/2017 complaining of shortness of breath. [facility]. Acute asthma exacerbation - Patient with diffuse wheezing on examination - does not appear in respiratory distress though - Instructed nursing to call respiratory therapy for stat albuterol treatment - Chest x-ray personally reviewed and shows no acute disease - Supplemental oxygen as needed titrated to maintain oxygen saturation greater than 92% - Solu-Medrol 40 mg IV every 6 hours - Continue home Advair - Albuterol nebulizer every 4 hours while awake and every 2 hours as needed for shortness of breath DVT prophylaxis 08/04: Appreciate pulmonology consultation, added Sam, cleared patient for discharge to follow-up as an outpatient Discharge patient to home Condition on discharge: Improved Regular Diet as tolerated Ad Princess activity Rx written: Singulair and prednisone taper Follow-up with primary care physician and pulmonology in 1 week Problem Qualifiers (1) Acute asthma exacerbation: Qualified Codes: J45.41 - Moderate persistent asthma with (acute) exacerbation Yeimi Arguello MD August 04, 2017 14:26
[2017-08-04] MEDS ORDERED: MONT10TA4 PO (16:17)
[2017-08-04] MEDS ORDERED: PRED10PA2 PO (16:17)
[2017-08-04] MEDS ORDERED: ZITH250T PO (16:17)
[2017-08-05] MEDS ORDERED: AZITHROMYCIN 250 MG TAB PO SCH (09:00)
== END 2017-08-04 17:23 | disposition home or self-care (01) | DRG 203 ==
LOC: NEPE 22:07 → NEDA 08-03 00:56 → N04B 08-03 01:21
PROVIDERS: ADMIT Hospitalist; ATTEND Hospitalist
DX: J45.41 Moderate persistent asthma with (acute) exacerbation (principal); E66.9 Obesity, unspecified; Z86.32 Personal history of gestational diabetes; Z79.51 Long term (current) use of inhaled steroids; Z68.38 Body mass index [BMI] 38.0-38.9, adult
CPT/HCPCS: 71045; 80048; 80053; 83735; 84100; 85007; 85025; 85027; 93005; 94060; 94640; 94664; 96365; 96375; J0696; J2920; J2930; J7613; J7614

== ENCOUNTER 2018-01-21 22:12 | Inpatient (IN) ==
[2018-01-21] MEDS ORDERED: Sod Chloride 0.9% Inj 1,000 ML IV.SIG ONE ×2 (22:33→22:34)
[2018-01-21 22:46] LABS: VBG Blood Gas Oxygen Content 16.5 Vol % (9.0-17.0); VBG PCO2 22 mmHG (44-48); VBG PH 7.03 (7.360-7.400); VBG PO2 54 mmHG (35-40)
--- NOTE | 2018-01-21 22:47 | ED ---
HPI General Chief complaint: Altered Mental Status Stated complaint: SOB Time Seen by Provider: 01/21/18 22:33 Source: family and RN notes reviewed Mode of arrival: wheelchair Limitations: altered mental status History of Present Illness HPI narrative: 27yF presenting with altered mental status. The patient's boyfriend states that the patient was complaining of abdominal pain for which she has been taking Pepto Bismol. She became unresponsive and appeared short of breath just prior to arrival. The patient is currently altered and unable to provide any meaningful contribution to HPI. Related Data Previous Rx's Medication Instructions Recorded albuterol sulfate 2.5 mg INHALATION Q4-6H PRN #75 ml 10/22/17 albuterol sulfate [ProAir HFA] 2 inh INHALATION Q4-6H PRN #6.7 g 10/22/17 albuterol sulfate 1 inh INHALATION Q4-6H PRN #6.7 g 11/04/17 albuterol sulfate 2.5 mg INHALATION Q6H PRN #75 ml 11/04/17 prednisone [Deltasone] 20 mg PO BID 4 Days #15 tab 11/19/17 cephalexin [Keflex] 500 mg PO Q8H #30 cap 11/26/17 fluconazole [Diflucan] 150 mg PO ONCE #2 tab 11/26/17 sulfamethoxazole-trimethoprim 1 tab PO Q12H #20 tab 11/26/17 [Bactrim DS] mupirocin 1 applic TOPICAL BID #15 g 12/22/17 albuterol sulfate 4 inh INHALATION Q4H PRN #8 g 01/08/18 Allergies Allergy/AdvReac Type Severity Reaction Status Date / Time No Known Allergies Allergy Verified 12/22/17 19:28 Review of Systems ROS: all other systems reviewed are negative COUNT INCLUDES [facility] Medical History Medical History delivery delivered (Acute) Asthma (Acute) Social History Social History Substance History: No History of Abuse Second Hand Smoke Exposure: No Smoking Status: Never smoker Tobacco Type: Cigarettes How Often Do You Have a Drink Containing Alcohol: Never [facility] within the Last 8 Weeks: No Recent Out of Country Travel within the Last 8 Weeks: No Immunization History Tetanus Immunization: Unable to Assess Exam Const General: in distress and ill appearing [facility] Head: normocephalic and atraumatic Other: Mucosa very dry Eyes Pupils: PERRL Chest Chest: normal inspection of the chest Resp Other: Deep rapid breathing Lungs clear bilaterally Cardio Rate: tachycardic Rhythm: regular rhythm GI Palpation: soft and nontender Other: Bedside US performed shows no free fluid Skin Other: Poor turgor Neuro Other: GCS 8 ([id number]), localizes to sternal rub, encephalopathic Course Initial Documented Vital Signs Pulse Rate 155 H 01/21/18 22:21 Respiratory Rate 26 H 01/21/18 22:21 Blood Pressure 133/68 01/21/18 22:21 Pulse Oximetry 95 01/21/18 22:21 Last Documented Vital Signs Pulse Rate 139 H 01/21/18 23:05 Respiratory Rate 32 H 01/21/18 23:05 Blood Pressure 129/75 01/21/18 23:05 Pulse Oximetry 100 01/21/18 23:05 Critical Care Time Critical Care Time: Yes Total Critical Care Time: 31 Attestation: Counseling/ Coordination of Care: Total critical care time 31 minutes. This includes examining and stabilizing the patient, gathering a history from a source other than the patient (i.e., chart review, boyfriend), formulating a differential diagnosis, ordering and interpreting laboratory tests and EKG, ordering and interpreting radiology tests , discussing the patient's care with other providers (critical care), management of severe acidosis and DKA, re-evaluation at frequent intervals, and documentation. Amount of time is separate from teaching, counseling the patient and/or family, and exclusive of procedures. Medical Decision Making MDM Narrative Medical decision making narrative: Assessment: 27yF presenting with altered mental status and abdominal pain Plan: EKG and monitor 2L NS bolus Labs, including VBG, lactate, blood cultures UA and UCG CT abd/ pelvis Addendum: Patient found to have severe DKA, hyperkalemia, and acute kidney injury. She is more responsive after 2L bolus and says that she's had polyuria/ polydipsia x several days. I ordered a bolus of 8U insulin (to help with hyperkalemia as well as hyperglycemia) and a drip at 7U/hr. [place] [facility] [place] Screen Exam Complete: Yes Emergency Medical Condition: Yes Differential Diagnosis Differential Diagnosis: Differential diagnosis includes, but is not limited to: DKA, HHNK, ruptured ectopic, perforated viscous, appendicitis, colitis, UTI, intoxication/ withdrawal Lab Data Lab results reviewed: Yes I reviewed the patient's lab results. Result diagrams: 01/21/18 23:40 01/21/18 22:40 POC Results POC Urine Results Negative Lab Results 01/21/18 01/21/18 01/21/18 Range/Units 22:32 22:37 22:40 Puncture Site Iv Patient Temperature 98.6 VBG pH 7.03 L* (7.360-7.400) VBG pCO2 22 L (44-48) mmHG VBG pO2 54 H (35-40) mmHG VBG HCO3 6 L* (22-26) mmol/L VBG O2 Saturation 74 (70-76) % VBG O2 Content 16.5 (9.0-17.0) Vol % VBG Base Excess -23.0 L (-2-2) mmol/L VBG Carboxyhemoglobin 1.2 (0-4) % VBG Methemoglobin 0.9 (0-2) % Hemoglobin 16.0 (12.0-16.0) G/DL O2 Delivery Device Room air Critical Value Yes Sodium 124 L* (136-145) meq/L Potassium 6.9 H* (3.5-5.1) meq/L Chloride 78 L (98-107) meq/L Carbon Dioxide 7.4 L (21.0-32.0) meq/L Anion Gap 39 H (5-15) meq/L BUN 36 H (7-18) mg/dL Creatinine 3.01 H (0.50-1.00) mg/dL Estimated GFR 22 L (>89) mL/min POC Glucose Greater than 600 H* (68-110) mg/dl Random Glucose 1528 H* (74-106) mg/dL Lactic Acid (0.4-2.0) mmol/L Calcium 9.9 (8.5-10.1) mg/dL Magnesium 4.1 H (1.5-2.5) mg/dL Total Bilirubin 0.5 (0.2-1.0) mg/dL AST 23 (15-37) U/L ALT 16 (10-53) U/L Alkaline Phosphatase 154 H (45-117) U/L Ammonia (11-32) mcmol/L Total Protein 8.6 H (6.4-8.2) g/dL Albumin 4.0 (3.4-5.0) g/dL Urine Color (Yellw/Straw) Urine Clarity (Clear) Urine pH (5.0-8.5) Ur Specific [employer] (1.002-1.035) Urine Protein (Neg-Trace) mg/dL Urine Glucose (UA) (Negative) mg/dL Urine Ketones (Negative) mg/dL Urine Occult Blood (Negative) Urine Nitrate (Negative) Urine Bilirubin (Negative) Urine Urobilinogen (Less than 2) mg/dL Ur Leukocyte Esterase (Negative) Urine RBC (0-3) /hpf Urine WBC (0-5) /hpf Ur Squamous Epith Cells (0-5) /hpf Hyaline Casts (0-3) /lpf Granular Casts (None) /lpf Urine Mucus (Occasional) /lpf Micro UA Comment Ur Microscopic Review Urine Culture Comments Urine Opiates Screen (Neg) Ur Barbiturates Screen (Neg) Ur Amphetamines Screen (Neg) U Benzodiazepines Scrn (Neg) Urine Cocaine Screen (Neg) U Cannabinoids Screen (Neg) Serum Alcohol Less than 3 (0-5) mg/dL 01/21/18 01/21/18 01/21/18 Range/Units 22:40 22:40 22:54 Puncture Site Patient Temperature VBG pH (7.360-7.400) VBG pCO2 (44-48) mmHG VBG pO2 (35-40) mmHG VBG HCO3 (22-26) mmol/L VBG O2 Saturation (70-76) % VBG O2 Content (9.0-17.0) Vol % VBG Base Excess (-2-2) mmol/L VBG Carboxyhemoglobin (0-4) % VBG Methemoglobin (0-2) % Hemoglobin (12.0-16.0) G/DL O2 Delivery Device Critical Value Sodium (136-145) meq/L Potassium (3.5-5.1) meq/L Chloride (98-107) meq/L Carbon Dioxide (21.0-32.0) meq/L Anion Gap (5-15) meq/L BUN (7-18) mg/dL Creatinine (0.50-1.00) mg/dL Estimated GFR (>89) mL/min POC Glucose (68-110) mg/dl Random Glucose (74-106) mg/dL Lactic Acid 6.8 H* (0.4-2.0) mmol/L Calcium (8.5-10.1) mg/dL Magnesium (1.5-2.5) mg/dL Total Bilirubin (0.2-1.0) mg/dL AST (15-37) U/L ALT (10-53) U/L Alkaline Phosphatase (45-117) U/L Ammonia 52 H (11-32) mcmol/L Total Protein (6.4-8.2) g/dL Albumin (3.4-5.0) g/dL Urine Color (Yellw/Straw) Urine Clarity (Clear) Urine pH (5.0-8.5) Ur Specific [employer] (1.002-1.035) Urine Protein (Neg-Trace) mg/dL Urine Glucose (UA) (Negative) mg/dL Urine Ketones (Negative) mg/dL Urine Occult Blood (Negative) Urine Nitrate (Negative) Urine Bilirubin (Negative) Urine Urobilinogen (Less than 2) mg/dL Ur Leukocyte Esterase (Negative) Urine RBC (0-3) /hpf Urine WBC (0-5) /hpf Ur Squamous Epith Cells (0-5) /hpf Hyaline Casts (0-3) /lpf Granular Casts (None) /lpf Urine Mucus (Occasional) /lpf Micro UA Comment Ur Microscopic Review Urine Culture Comments Urine Opiates Screen Neg (Neg) Ur Barbiturates Screen Neg (Neg) Ur Amphetamines Screen Neg (Neg) U Benzodiazepines Scrn Neg (Neg) Urine Cocaine Screen Neg (Neg) U Cannabinoids Screen Neg (Neg) Serum Alcohol (0-5) mg/dL 01/21/18 Range/Units 22:54 Puncture Site Patient Temperature VBG pH (7.360-7.400) VBG pCO2 (44-48) mmHG VBG pO2 (35-40) mmHG VBG HCO3 (22-26) mmol/L VBG O2 Saturation (70-76) % VBG O2 Content (9.0-17.0) Vol % VBG Base Excess (-2-2) mmol/L VBG Carboxyhemoglobin (0-4) % VBG Methemoglobin (0-2) % Hemoglobin (12.0-16.0) G/DL O2 Delivery Device Critical Value Sodium (136-145) meq/L Potassium (3.5-5.1) meq/L Chloride (98-107) meq/L Carbon Dioxide (21.0-32.0) meq/L Anion Gap (5-15) meq/L BUN (7-18) mg/dL Creatinine (0.50-1.00) mg/dL Estimated GFR (>89) mL/min POC Glucose (68-110) mg/dl Random Glucose (74-106) mg/dL Lactic Acid (0.4-2.0) mmol/L Calcium (8.5-10.1) mg/dL Magnesium (1.5-2.5) mg/dL Total Bilirubin (0.2-1.0) mg/dL AST (15-37) U/L ALT (10-53) U/L Alkaline Phosphatase (45-117) U/L Ammonia (11-32) mcmol/L Total Protein (6.4-8.2) g/dL Albumin (3.4-5.0) g/dL Urine Color Yellow (Yellw/Straw) Urine Clarity Hazy H (Clear) Urine pH 5.0 (5.0-8.5) Ur Specific [employer] 1.025 (1.002-1.035) Urine Protein Negative (Neg-Trace) mg/dL Urine Glucose (UA) 500 or greater (Negative) mg/dL Urine Ketones 20 (Negative) mg/dL Urine Occult Blood Small H (Negative) Urine Nitrate Negative (Negative) Urine Bilirubin Negative (Negative) Urine Urobilinogen Less than 2 (Less than 2) mg/dL Ur Leukocyte Esterase Negative (Negative) Urine RBC 1 (0-3) /hpf Urine WBC 1 (0-5) /hpf Ur Squamous Epith Cells <1 (0-5) /hpf Hyaline Casts 5 (0-3) /lpf Granular Casts 3 (None) /lpf Urine Mucus Few H (Occasional) /lpf Micro UA Comment Cath-culture not ind Ur Microscopic Review Not Reportable Urine Culture Comments Cath-cult not ind Urine Opiates Screen (Neg) Ur Barbiturates Screen (Neg) Ur Amphetamines Screen (Neg) U Benzodiazepines Scrn (Neg) Urine Cocaine Screen (Neg) U Cannabinoids Screen (Neg) Serum Alcohol (0-5) mg/dL Imaging Data Radiologist's impression: Abdomen/Pelvis CT 01/21/18 22:34 CONCLUSION: Distended stomach. ECG Data Attestation: I personally reviewed and interpreted this ECG as follows: Interpretation: Rate: 148 BPM Rhythm: Sinus [place]: Normal Intervals: Normal intervals, no blocks, QTc 376 ms Q waves: None T waves: Inverted in aVL ST segments: No elevations or depressions Impression: Sinus tachycardia, no changes as compared to EKG from 11/26/2017. Discharge Plan Discharge Disposition Patient Disposition: 28 Still Patient Discharge Condition Condition: Critical Discharge Details Diagnosis: DKA (diabetic ketoacidoses), Lactic acidosis, Encephalopathy, Acute hyperkalemia Physicians Team ED Provider: Adilia Mosquera Primary Care Provider: Primary Care Ebony Martinez Attending Provider: Cornell Daly Interventions Interventions: Vital Signs Last Done: 01/21/18 23:05 Status ED Status: Admitted Patient
[2018-01-21 23:27] LABS: Alanine Aminotransferase 16 U/L (10-53); Alkaline Phosphatase 154 U/L (45-117); Anion Gap 39 meq/L (5-15); Aspartate Aminotransferase 23 U/L (15-37); Blood Urea Nitrogen 36 mg/dL (7-18); Calcium 9.9 mg/dL (8.5-10.1); Carbon Dioxide 7.4 meq/L (21.0-32.0); Chloride 78 meq/L (98-107); Glomerular Filtration Rate 22 mL/min (>89); Magnesium 4.1 mg/dL (1.5-2.5); Total Protein 8.6 g/dL (6.4-8.2)
--- NOTE | 2018-01-21 23:27 | P.HPCC ---
History of Present Illness History of Present Illness: 27-year-old female presents for an evaluation of an altered mental status. The patient's boyfriend states that the patient was complaining of abdominal pain for which she has been taking Pepto Bismol. She became unresponsive and appeared short of breath just prior to arrival. The patient is currently altered and unable to provide any meaningful contribution to HPI. Her blood sugar level in the emergency department was above 1500 and anion gap of 30. Inpatient Certification: I certify that the inpatient services were ordered in accordance with Medicare regulations governing the order. This includes certification that hospital inpatient services are reasonable and necessary and in the case of services not specified as inpatient-only under 42 CFR 419.22(n), that they are appropriately provided as inpatient services in accordance to with the 2-midnight benchmark under 43 CFR 412.3(e) Review of Systems unobtainable due to mental condition PMFSH - History History Provided By: Family Member - Medical History Medical History: Medical History (Last Reviewed 01/21/18 @ 22:48 by Adilia Mosquera DO) delivery delivered (Acute) Asthma (Acute) - Tobacco History Second Hand Smoke Exposure: No Smoking Status: Never smoker Tobacco Type: Cigarettes - Alcohol History How Often Do You Have a Drink Containing Alcohol: Never - Substance Use History Substance History: No History of Abuse - Travel History Recent Travel in the [place] Within the Last 8 Weeks: No Recent Travel Out of the Country Within the Last 8 Weeks: No - Immunization History Tetanus Immunization: Unable to Assess Medications and Allergies Active Medications: Active Medications Sodium Chloride (Ns Flush) 2 ml IV.FLUSH PRN PRN PRN Reason: FLUSH AFTER USING IV ACCESS Current Medications Acetaminophen (Tylenol) 650 mg PO Q6H PRN PRN Reason: PAIN 1-10 AND/OR FEVER >101F Al Hydroxide/Mg Hydroxide (Milk Of Magnsejal Liq) 30 ml PO Q12H PRN PRN Reason: Mild Constipation Albuterol (Duoneb Neb (Prn)) 1 ampul NEB Q2HR NEB PRN PRN Reason: WHEEZING Bisacodyl (Dulcolax Supp) 10 mg RECTAL DAILY PRN PRN Reason: SEVERE CONSITIPATION Chlorhexidine Gluconate (Chlorhexidine 2% Cloth) 3 pack TOPICAL DAILY@0400 [facility] Stop: 01/27/18 03:59 Chlorhexidine Gluconate (Chlorhexidine 2% Cloth) 3 pack TOPICAL DAILY@0400 PRN PRN Reason: Extra cloth needed Stop: 01/27/18 03:59 Chlorhexidine Gluconate (Chlorhexidine 2% Cloth) 3 pack TOPICAL DAILY@0400 [facility] Stop: 01/27/18 03:59 Chlorhexidine Gluconate (Chlorhexidine 2% Cloth) 3 pack TOPICAL DAILY@0400 PRN PRN Reason: Extra cloth needed Stop: 01/27/18 03:59 Enoxaparin Sodium (Lovenox Inj) 40 mg SQ Q24H [facility] Famotidine (Pepcid Pf Inj) 20 mg IV.PUSH Q12HR [facility] Dextrose/Sodium Chloride (D5w/Normal Saline Inj) 1,000 mls @ 200 mls/hr IV.CONT .Q5H [facility] Insulin Human Regular 100 unit (/ Sodium Chloride) 100 mls @ 7 mls/hr IV.CONT TITRATE PRN; Protocol PRN Reason: See protocol Last Admin: 01/22/18 00:19 Dose: 7 units/hr, 7 mls/hr Potassium Chloride (Kcl 20 Meq Premix Inj) 20 meq in 100 mls @ 100 mls/hr IV.SIG Q1H PRN PRN Reason: for K+ 4.5 to 5 Potassium Chloride (Kcl 20 Meq Premix Inj) 20 meq in 100 mls @ 50 mls/hr IV.SIG Q2H PRN PRN Reason: for K+ 4.5 to 5 Potassium Chloride (Kcl 20 Meq Premix Inj) 20 meq in 100 mls @ 100 mls/hr IV.SIG Q1H PRN PRN Reason: for K+ 3.5 to 4.4 Potassium Chloride (Kcl 20 Meq Premix Inj) 20 meq in 100 mls @ 50 mls/hr IV.SIG Q2H PRN PRN Reason: for Initial K+ ONLY < 3.5 Potassium Chloride (Kcl 40 Meq Premix Inj) 40 meq in 100 mls @ 100 mls/hr IV.SIG Q1H PRN PRN Reason: for Initial K+ ONLY < 3.5 Potassium Chloride (Kcl 20 Meq Premix Inj) 20 meq in 100 mls @ 50 mls/hr IV.SIG Q2H PRN PRN Reason: for Subsequent K+ < 3.5 Potassium Chloride (Kcl 40 Meq Premix Inj) 40 meq in 100 mls @ 50 mls/hr IV.SIG Q2H PRN PRN Reason: for Subsequent K+ < 3.5 Sodium Chloride (Ns Inj) 1,000 mls @ 250 mls/hr IV.CONT .Q4H [facility] Last Admin: 01/22/18 00:18 Dose: 250 mls/hr Sodium Phosphate 15 mmol/ (Sodium Chloride) 105 mls @ 25 mls/hr IV.SIG UNSCH PRN PRN Reason: for Phosphate Level < 1.0 Potassium Chloride (Kcl 20 Meq Premix Inj) 20 meq in 100 mls @ 50 mls/hr IV.SIG Q2H PRN PRN Reason: for K+ 3.5 to 4.4 Dextrose/Sodium Chloride (D5w/Normal Saline Inj) 1,000 mls @ 200 mls/hr IV.CONT .Q5H [facility] Sodium Chloride (Ns Inj) 1,000 mls @ 250 mls/hr IV.CONT .Q4H [facility] Potassium Chloride (Kcl 40 Meq Premix Inj) 40 meq in 100 mls @ 100 mls/hr IV.SIG Q1H PRN PRN Reason: for Initial K+ ONLY < 3.5 Potassium Chloride (Kcl 40 Meq Premix Inj) 40 meq in 100 mls @ 50 mls/hr IV.SIG Q2H PRN PRN Reason: for Subsequent K+ < 3.5 Potassium Chloride (Kcl 20 Meq Premix Inj) 20 meq in 100 mls @ 100 mls/hr IV.SIG Q1H PRN PRN Reason: for K+ 3.5 to 4.4 Potassium Chloride (Kcl 20 Meq Premix Inj) 20 meq in 100 mls @ 100 mls/hr IV.SIG Q1H PRN PRN Reason: for K+ 4.5 to 5 Potassium Chloride (Kcl 20 Meq Premix Inj) 20 meq in 100 mls @ 50 mls/hr IV.SIG Q2H PRN PRN Reason: for Initial K+ ONLY < 3.5 Potassium Chloride (Kcl 20 Meq Premix Inj) 20 meq in 100 mls @ 50 mls/hr IV.SIG Q2H PRN PRN Reason: for Subsequent K+ < 3.5 Potassium Chloride (Kcl 20 Meq Premix Inj) 20 meq in 100 mls @ 50 mls/hr IV.SIG Q2H PRN PRN Reason: for K+ 3.5 to 4.4 Potassium Chloride (Kcl 20 Meq Premix Inj) 20 meq in 100 mls @ 50 mls/hr IV.SIG Q2H PRN PRN Reason: for K+ 4.5 to 5 Sodium Phosphate 15 mmol/ (Sodium Chloride) 105 mls @ 25 mls/hr IV.SIG UNSCH PRN PRN Reason: for Phosphate Level < 1.0 Sodium Chloride (Ns Inj) 1,000 mls @ 1,000 mls/hr IV.SIG .Q1H [facility] Stop: 01/22/18 01:44 Lactulose (Lactulose Liq) 30 ml PO DAILY PRN PRN Reason: SEVERE CONSITIPATION Morphine Sulfate (Morphine Inj) 2 mg IV.PUSH Q2H PRN PRN Reason: PAIN SCALE 6 TO 10 Ondansetron HCl (Zofran Inj) 4 mg IV.PUSH Q6H PRN PRN Reason: NAUSEA OR VOMITING Senna/Docusate Sodium (Amelie-Colace) 1 tab PO BID [facility] Sennosides (Senokot) 17.2 mg PO Q12H PRN PRN Reason: Moderate Constipation Sodium Bicarbonate (Sodium Bicarbonate 8.4% Inj) 100 meq IV.PUSH UNSCH PRN PRN Reason: for pH less than 6.9 Sodium Bicarbonate (Sodium Bicarbonate 8.4% Inj) 50 meq IV.PUSH UNSCH PRN PRN Reason: for pH 6.9 to 7.0 Sodium Bicarbonate (Sodium Bicarbonate 8.4% Inj) 100 meq IV.PUSH UNSCH PRN PRN Reason: for pH less than 6.9 Sodium Bicarbonate (Sodium Bicarbonate 8.4% Inj) 50 meq IV.PUSH UNSCH PRN PRN Reason: for pH 6.9 to 7.0 Sodium Chloride (Ns Flush) 2 ml IV.FLUSH PRN PRN PRN Reason: FLUSH AFTER USING IV ACCESS Sodium Chloride (Ns Flush) 2 ml IV.FLUSH BID [facility] Sodium Chloride (Ns Flush) 2 ml IV.FLUSH PRN PRN PRN Reason: FLUSH AFTER USING IV ACCESS Sodium Chloride (Ns Flush) 2 ml IV.FLUSH PRN PRN PRN Reason: FLUSH AFTER USING IV ACCESS Allergies Allergy/AdvReac Type Severity Reaction Status Date / Time No Known Allergies Allergy Verified 12/22/17 19:28 Home Medications Medication Instructions Recorded Confirmed Type No Known Home Medications 01/22/18 01/22/18 History Results - Labs CBC & Chem 7: 01/21/18 23:40 01/21/18 22:40 - Imaging Impressions Abdomen/Pelvis CT 01/21/18 22:34 CONCLUSION: Distended stomach. Chest X-Ray 01/21/18 23:46 CONCLUSION: No acute cardiopulmonary process. Exam Vital signs: Vital Signs 01/21/18 22:21 01/21/18 22:44 01/21/18 23:05 Pulse Rate 155 H 150 H 139 H Respiratory Rate 26 H 28 H 32 H Blood Pressure 133/68 154/79 H 129/75 Pulse Oximetry 95 98 100 Intake & Output 01/21/18 01/21/18 01/22/18 06:59 18:59 06:59 Weight 70.307 kg - Constitutional severe distress - Routine HEENT Exam Head: Present: normocephalic, atraumatic Eye: Present: PERRL, normal accommodation - Routine Neck Exam Present: supple. Absent: JVD, carotid bruit - Routine Chest/Breast/Axilla Exam Chest wall: Absent: tenderness - Routine Respiratory Exam Absent: accessory muscle use, rhonchi, stridor, wheezes - Routine Cardiovascular Exam Present: RRR, S1, S2 - Routine Abdominal Exam Present: soft, normoactive bowel sounds, tenderness. Absent: distended - Routine Extremities Exam Absent: cyanosis, clubbing, edema - Routine Skin Exam Present: intact. Absent: cyanosis, erythema - Routine Neurological Exam Present: altered mental status, moving all extremities Septic Shock Reassessment Septic shock perfusion: reassessment completed Caprini VTE Risk Assessment Caprini VTE Risk Assessment: Moderate/High Risk (score >= 2) Caprini Risk Assessment Model: Point Value = 1 Point Value = 2 Point Value = 3 Point Value = 5 Age 41-60 Minor surgery BMI > 25 kg/m2 Swollen legs Varicose veins or History of unexplained or recurrent spontaneous Oral contraceptives or hormone replacement Sepsis (< 1 month) Serious lung disease, including pneumonia (< 1 month) Abnormal pulmonary function Acute myocardial infarction Congestive heart failure (< 1 month) History of inflammatory bowel disease Medical patient at bed rest Age 61-74 Arthroscopic surgery Major open surgery (> 45 min) Laparoscopic surgery (> 45 min) Malignancy Confined to bed (> 72 hours) Immobilizing plaster cast Central venous access Age >= 75 History of VTE Family history of VTE Factor V Leiden Prothrombin [id number] Lupus anticoagulant Anticardiolipin antibodies Elevated serum homocysteine Heparin-induced thrombocytopenia Other congenital or acquired thrombophilia Stroke (< 1 month) Elective arthroplasty Hip, pelvis, or leg fracture Acute spinal cord injury (< 1 month) Prophylaxis Regimen: Total Risk Factor Score Risk Level Prophylaxis Regimen 0-1 Low Early ambulation 2 Moderate Order ONE of the following: *Sequential Compression Device (SCD) *Heparin 5000 units SQ BID 3-4 Higher Order ONE of the following medications: *Heparin 5000 units SQ TID *Enoxaparin/Lovenox 40 mg SQ daily (WT < 150 kg, CrCl > 30 mL/min) *Enoxaparin/Lovenox 30 mg SQ daily (WT < 150 kg, CrCl > 10-29 mL/min) *Enoxaparin/Lovenox 30 mg SQ BID (WT < 150 kg, CrCl > 30 mL/min) AND/OR *Sequential Compression Device (SCD) 5 or more Highest Order ONE of the following medications: *Heparin 5000 units SQ TID (Preferred with Epidurals) *Enoxaparin/Lovenox 40 mg SQ daily (WT < 150 kg, CrCl > 30 mL/min) *Enoxaparin/Lovenox 30 mg SQ daily (WT < 150 kg, CrCl > 10-29 mL/min) *Enoxaparin/Lovenox 30 mg SQ BID (WT < 150 kg, CrCl > 30 mL/min) AND *Sequential Compression Device (SCD) Assessment and Plan - Assessment and Plan Plan: DKA -No prior history of diabetes -Insulin drip -Aggressive IV hydration -ICU DKA protocol Acute kidney injury Hyperkalemia Metabolic acidosis -Dehydration -Aggressive IV fluid resuscitation -Strict I's and O's -Monitor creatinine and electrolyte levels Altered mental status -Due to above -Treated DKA Leukocytosis -Likely stress induced -Blood and urine cultures -No antibiotics indicated at this time DVT GI prophylaxis -Teds SCDs -Subcu Lovenox -Pepcid 35 minutes of critical care
[2018-01-21 23:29] LABS: Amphetamine Screen,Urine Neg (Neg); Barbiturate Screen,Urine Neg (Neg); Cannabinoid Screen,Urine Neg (Neg); Cocaine Screen,Urine Neg (Neg)
[2018-01-21 23:31] LABS: Bilirubin,Urine Negative (Negative); Clarity,Urine Hazy (Clear); Color,Urine Yellow (Yellw/Straw); Glucose,Urine (UA) 500 or Greater mg/dL (Negative); Hyaline Casts,Urine 5 /lpf (0-3); Leukocyte Esterase,Urine Negative (Negative); Mucus,Urine Few /lpf (Occasional); Nitrite,Urine Negative (Negative); Specific Gravity,Urine 1.025 (1.002-1.035); Squamous Epithelial Cell,Urine <1 /hpf (0-5)
[2018-01-21] MEDS ORDERED: Acetaminophen 325 MG Tablet PO PRN (23:41)
[2018-01-21] MEDS ORDERED: Bisacodyl 10 MG Supp RECTAL PRN (23:41)
--- NOTE | 2018-01-21 23:42 | CT ---
EXAM DATE: 01/21/2018 10:37 PM EDT AGE/SEX: 27 years / Female INDICATIONS: Abdomen pain. CLINICAL DATA: This is the patient's initial encounter. Patient reports that signs and symptoms have been present for 1 day and indicates a pain score of Nonresponsive. MEDICAL/SURGICAL HISTORY: Asthma. Diabetes mellitus type II. section. RADIATION DOSE: 15.50 CTDI (mGy) COMPARISON: No prior exams available for comparison. TECHNIQUE: Multiple contiguous axial images were obtained through the abdomen. Images were obtained using multiple row detector helical technique. Using automated exposure control and adjustment of the mA and/or kV according to patient size, radiation dose was kept as low as reasonably achievable to o btain optimal diagnostic quality images. DICOM format image data is available electronically for rev iew and comparison. FINDINGS: Lower Lungs: The visualized lower lungs are clear. Liver: The liver has a homogeneous density without space-occupying lesion. There is no dilation of th e biliary tree. Spleen: Homogeneous density without enlargement. Pancreas: Unremarkable without mass or calcification. Kidneys: Normal in size and shape. No evidence of mass or hydronephrosis. Adrenal Glands: Unremarkable. Aorta: The aorta and proximal iliac vessels are grossly unremarkable without aneurysmal dilation. Bowel/Mesentery: The stomach is distended. It fluid. The small bowel and colon are not distended. In flammatory change is not seen. The appendix appears normal. Abdominal Wall: There is minimal horizontal induration the inferior aspect of the anterior abdominal wall over the pelvis likely from prior section. Retroperitoneum: No evidence of adenopathy in the retrocrural, para-aortic, or deep pelvic regions. Bladder: There is a Craig catheter. There is small amount of air within the bladder likely from the catheter insertion. Reproductive Organs: No abnormal masses or calcifications seen. Inguinal: The inguinal region is unremarkable without evidence of adenopathy. Bony Structures: Unremarkable. CONCLUSION: Distended stomach. Electronically signed by: Conrad Hinojosa MD 01/21/2018 11:41 PM EDT
[2018-01-21] MEDS ORDERED: Potassium Chlor 40 mEq Premix 40 MEQ/100 ML PIGGYBACK IV.SIG PRN ×4 (23:47→23:50)
[2018-01-21] MEDS ORDERED: Sodium Phosphate Inj 15 MMOL in Sodium Chlor 0.9% Inj 100 ML IV.SIG PRN ×2 (23:47→23:50)
[2018-01-21] MEDS ORDERED: Insulin Regular (For Infusion) 100 UNIT in Sodium Chlor 0.9% Inj 99 ML IV.CONT PRN (23:47)
[2018-01-21] MEDS ORDERED: Potassium Chlor 20 mEq Premix 20 MEQ/100 ML PIGGYBACK IV.SIG PRN ×12 (23:47→23:50)
[2018-01-21 23:48] LABS: Glucose,Random 1528 mg/dL (74-106); Potassium 6.9 meq/L (3.5-5.1); Sodium 124 meq/L (136-145)
[2018-01-21 23:49] LABS: Opiate Screen,Urine Neg (Neg)
[2018-01-21 23:53] LABS: Hematocrit 58.8 % (35.0-46.0); Hemoglobin 15.8 gm/dL (11.6-15.3); Mean Corpuscular Hemoglobin 28.3 pg (27.0-34.0); Mean Corpuscular Volume 105.1 fL (80.0-100.0); Platelet Count 256 th/mm3 (150-450); Red Cell Distribution Width 17.1 % (11.6-17.2); White Blood Count 30.7 th/mm3 (4.0-11.0)
[2018-01-21 23:55] LABS: Mean Corpuscular HGB Conc 26.9 % (32.0-36.0)
--- NOTE | 2018-01-22 00:09 | XR ---
EXAM DATE: 01/22/2018 11:46 PM EDT AGE/SEX: 27 years / Female INDICATIONS: Fever. CLINICAL DATA: This is the patient's initial encounter. Patient reports that signs and symptoms have been present for 1 day and indicates a pain score of 0/10. MEDICAL/SURGICAL HISTORY: Asthma. Diabetes mellitus type II. section. COMPARISON: [facility] – [place]ST 1V SINGLE AP, 11/19/2017. . FINDINGS: A single AP view of the chest demonstrates the lungs to be symmetrically aerated without evidence of mass, infiltrate or effusion. The cardiomediastinal contours are unremarkable. Osseous structures a re intact. CONCLUSION: No acute cardiopulmonary process. Electronically signed by: Conrad Hinojosa MD 01/22/2018 12:08 AM EDT
[2018-01-22] MEDS: Sod Chloride 0.9% Inj 1,000 ML IV.CONT SCH ×10 (00:18→15:59)
[2018-01-22 00:22] LABS: Lymphocytes 13 % (9-44); Metamyelocytes 1 % (0-1); Monocytes 13 % (0-8); Myelocytes 2 % (0-0); Tallied Nucleated RBC 1 (0-0)
[2018-01-22 00:24] LABS: Pappenheimer Bodies Present; Platelet Estimate Normal (Normal); Platelet Morphology Normal (Normal); Toxic Vacuolation Present
[2018-01-22 02:03] LABS: Carbon Dioxide 6.4 meq/L (21.0-32.0); Potassium 3.7 meq/L (3.5-5.1)
[2018-01-22] MEDS: Dextrose 5%/NaCl 0.9% Inj 1,000 ML IV.CONT SCH ×8 (02:51→15:58)
[2018-01-22] MEDS: Sod Chloride 0.9% Inj 1,000 ML IV.SIG SCH (02:52)
[2018-01-22] MEDS ORDERED: Sod Chloride 0.9% Inj 1,000 ML IV.SIG SCH ×2 (03:00→08:30)
[2018-01-22] MEDS ORDERED: Chlorhexidine Gluconate 2% 1 Pack (2 Cloths) TOPICAL SCH (04:00)
[2018-01-22] MEDS ORDERED: Chlorhexidine Gluconate 2% 1 Pack (2 Cloths) TOPICAL PRN ×2 (04:00)
[2018-01-22] MEDS: Enoxaparin Inj 40 MG/0.4 ML Syringe SQ SCH (04:43)
[2018-01-22] MEDS: Chlorhexidine Gluconate 2% 1 Pack (2 Cloths) TOPICAL SCH (04:44)
[2018-01-22 05:35] LABS: Baso # (Auto) 0.2 th/mm3 (0.0-0.2); Baso % (Auto) 0.8 % (0.0-2.0); Hemoglobin 13.9 gm/dL (11.6-15.3); Lymph # (Auto) 5.2 th/mm3 (1.0-4.8); Lymph % (Auto) 17.6 % (9.0-44.0); Mean Corpuscular HGB Conc 31.5 % (32.0-36.0); Mean Corpuscular Hemoglobin 28.6 pg (27.0-34.0); Mean Corpuscular Volume 90.8 fL (80.0-100.0); Mean Platelet Volume 10.4 fL (7.0-11.0); Mono # (Auto) 2.8 th/mm3 (0.0-0.9); Mono % (Auto) 9.5 % (0.0-8.0); Neut # (Auto) 21.2 th/mm3 (1.8-7.7); Neut % (Auto) 72.1 % (16.0-70.0); Platelet Count 250 th/mm3 (150-450); Red Blood Count 4.85 mil/mm3 (4.00-5.30); Red Cell Distribution Width 15.7 % (11.6-17.2); White Blood Count 29.4 th/mm3 (4.0-11.0)
[2018-01-22 06:07] LABS: Activated Partial Thrombo Time 18.3 sec (24.3-30.1); Alanine Aminotransferase 13 U/L (10-53); Alkaline Phosphatase 113 U/L (45-117); Anion Gap 22 meq/L (5-15); Aspartate Aminotransferase 10 U/L (15-37); Blood Urea Nitrogen 26 mg/dL (7-18); Calcium 7.5 mg/dL (8.5-10.1); Carbon Dioxide 8.3 meq/L (21.0-32.0); Chloride 123 meq/L (98-107); Glomerular Filtration Rate 47 mL/min (>89); Glucose,Random 409 mg/dL (74-106); Magnesium 2.3 mg/dL (1.5-2.5); Phosphorus 2.3 mg/dL (2.5-4.9); Potassium 4.8 meq/L (3.5-5.1); Prothrombin Time 10.6 sec (9.8-11.6); Sodium 153 meq/L (136-145); Total Protein 6.5 g/dL (6.4-8.2)
[2018-01-22] MEDS: Morphine Inj 4 MG/ML Vial IV.PUSH PRN ×2 (07:48→16:09)
--- NOTE | 2018-01-22 08:18 | P.PNCC ---
Subjective Subjective Remarks/Hospital Course: 27-year-old female presents for an evaluation of an altered mental status. The patient's boyfriend states that the patient was complaining of abdominal pain for which she has been taking Pepto Bismol. She became unresponsive and appeared short of breath just prior to arrival. The patient is currently altered and unable to provide any meaningful contribution to HPI. Her blood sugar level in the emergency department was above 1500 and anion gap of 30. SUBJ 01/22: Patient is lying in bed no acute distress. More awake though lethargic. Admits to not taking insulin. Blood sugar is in the 350s and now anion gap is improved from 39 to 22. Remains on IV insulin infusion per DKA protocol. Once gap is closed will transition to subcu insulin Objective Vital Signs / I&O: Vital Signs 01/21/18 22:21 01/21/18 22:44 01/21/18 23:05 Temperature Pulse Rate 155 H 150 H 139 H Respiratory Rate 26 H 28 H 32 H Blood Pressure 133/68 154/79 H 129/75 Pulse Oximetry 95 98 100 01/22/18 00:47 01/22/18 02:00 01/22/18 03:00 Temperature 97.6 F 97.7 F Pulse Rate 137 H 137 H 141 H Respiratory Rate 26 H 28 H 34 H Blood Pressure 131/78 130/75 125/71 Pulse Oximetry 99 99 99 01/22/18 04:00 01/22/18 05:00 01/22/18 06:00 Temperature 98.2 F Pulse Rate 140 H 144 H 145 H Respiratory Rate 27 H 29 H 23 Blood Pressure 112/69 112/84 138/91 H Pulse Oximetry 100 100 100 Intake & Output 01/21/18 01/22/18 01/22/18 18:59 06:59 18:59 Intake Total 4100 / 4100 Output Total 2950 / 2950 Balance 1150 / 1150 Weight 86.5 kg Intake: IV 4100 / 4100 NS Inj 1,000 ML @ 250 mls/hr IV 1000 / 1000 .CONT .Q4H [facility] Rx#:[id number] KCl 20 mEq Premix Inj 20 meq In 100 / 100 100 ml @ 50 mls/hr IV.SIG Q2H PRN Rx#:[id number] NS Inj 1,000 ML @ As Directed 3000 / 3000 IV.SIG BOLUS [facility] Rx#:[id number] Oral 0 / 0 Output: Urine Amount (Catheter) 2950 / 2950 Indwelling Urethral Catheter 2950 / 2950 Other: # Bowel Movements 0 Weight On Admission 86.5 kg Result Diagrams: 01/22/18 05:21 01/22/18 05:21 Objective Remarks: Const General: Ill appearing, but awake alert HEENT: Head: normocephalic and atraumatic Oral mucosa dry Eyes: PERRL Resp No tachypnea. Lungs clear bilaterally Cardio Rate: tachycardic, sinus heart rate in 140-150 range Rhythm: regular rhythm GI Palpation: soft and nontender Skin Other: Poor turgor Neuro Other: Somnolent but wakes up easily follows commands. No focal deficits moves all 4 extremities Assessment and Plan - Assessment and Plan Plan: DKA -Patient admits to diabetes on insulin also admits to not taking insulin -Insulin drip per DKA protocol -Aggressive IV hydration. Give additional 2 L normal saline boluses -ICU DKA protocol -Transition to subcu Levemir and pre-meal NovoLog with sliding scale after anion gap closes Acute kidney injury Hyperkalemia Metabolic acidosis -Dehydration -Aggressive IV fluid resuscitation -Strict I's and O's -Monitor creatinine and electrolyte levels Altered mental status -Due to above -Improving Sinus tachycardia -Continue aggressive fluid resuscitation -Metoprolol 2.5 mg IV every 6 hours as needed for heart rate more than 120 Leukocytosis -Likely stress induced -Blood and urine cultures, follow-up -No antibiotics indicated at this time DVT GI prophylaxis -Teds SCDs -Subcu Lovenox -Pepcid 35 minutes of critical care
[2018-01-22] MEDS ORDERED: Sod Chloride 0.9% Inj 2,000 ML IV.SIG ONE (09:00)
[2018-01-22 10:19] LABS: Lymphocytes 15 % (9-44); Monocytes 6 % (0-8)
[2018-01-22 10:20] LABS: Platelet Estimate Normal (Normal); Platelet Morphology Normal (Normal)
[2018-01-22] MEDS: Metoprolol Inj 5 MG/5 ML Vial IV.PUSH PRN ×2 (10:26→18:17)
[2018-01-22] MEDS: Famotidine PF Inj 20 MG/2 ML Vial IV.PUSH SCH ×2 (10:27→21:07)
[2018-01-22] MEDS: Senna/Docusate Sodium 8.6/50 MG Tablet PO SCH ×2 (10:27→21:07)
[2018-01-22 11:59] LABS: Carbon Dioxide 10.9 meq/L (21.0-32.0); Potassium 3.8 meq/L (3.5-5.1); Troponin I 0.05 ng/mL (0.02-0.05)
[2018-01-22 12:31] LABS: Total Protein 5.7 g/dL (6.4-8.2)
[2018-01-22 13:01] LABS: Beta Hydroxybutyric Acid 4.48 mmol/L (0.00-0.39)
--- NOTE | 2018-01-22 13:16 | ECG ---
Date Performed: 01/21/2018 Time Performed: 22:33:40 PTAGE: 27 years EKG: ABNORMAL RHYTHM ECG tachycardia cannot rule out atrial flutter with 2:1 conduction, this is new since prior tracing Clinical correlation is recommended PREVIOUS TRACING : 11/26/2017 11.35 DOCTOR: Paddy Badillo Interpretating Date/Time 01/22/2018 13:15:21
--- NOTE | 2018-01-22 13:18 | ECG ---
Date Performed: 01/22/2018 Time Performed: 06:44:44 PTAGE: 27 years EKG: Probable sinus tachycardia. Poor R wave progression - probable normal variant rule out atri al flutter probable sinus tachycardia Clinical correlation is recommended Borderline ECG PREVIOUS TRACING : 01/21/2018 22.33 DOCTOR: Paddy Badillo Interpretating Date/Time 01/22/2018 13:15:56
[2018-01-22] MEDS: Dextrose 5% in Water Inj 1,000 ML IV.SIG SCH ×2 (15:58→20:51)
[2018-01-22] MEDS ORDERED: Dextrose 50% in Water 50 ML Vial IV.PUSH PRN (16:07)
[2018-01-22] MEDS ORDERED: DC Insulin drip 2 hrs post basal insulin dose OTHER ONE (16:07)
[2018-01-22] MEDS ORDERED: DC previous DKA orders (HMC 1917) OTHER ONE (16:07)
[2018-01-22] MEDS: Insulin Detemir Inj 1,000 UNIT/10 ML Vial SQ SCH (18:07)
[2018-01-22 19:01] LABS: Calcium 7.6 mg/dL (8.5-10.1); Carbon Dioxide 15.1 meq/L (21.0-32.0); Potassium 4.1 meq/L (3.5-5.1)
[2018-01-22] MEDS: Insulin NovoLOG Aspart Correctional Sugar Inj SQ SCH (21:07)
[2018-01-22 23:28] LABS: Alanine Aminotransferase 11 U/L (10-53); Albumin 2.8 g/dL (3.4-5.0); Alkaline Phosphatase 93 U/L (45-117); Anion Gap 15 meq/L (5-15); Aspartate Aminotransferase 10 U/L (15-37); Blood Urea Nitrogen 10 mg/dL (7-18); Carbon Dioxide 17.4 meq/L (21.0-32.0); Chloride 120 meq/L (98-107); Glomerular Filtration Rate 70 mL/min (>89); Glucose,Random 276 mg/dL (74-106); Magnesium 2.1 mg/dL (1.5-2.5); Potassium 3.1 meq/L (3.5-5.1); Sodium 152 meq/L (136-145); Total Protein 5.6 g/dL (6.4-8.2)
[2018-01-23] MEDS: Enoxaparin Inj 40 MG/0.4 ML Syringe SQ SCH ×2 (00:36→23:33)
[2018-01-23] MEDS: Insulin NovoLOG Aspart Correctional Sugar Inj SQ SCH ×5 (03:05→21:01)
[2018-01-23] MEDS ORDERED: Potassium Chlor 20 mEq Premix 20 MEQ/100 ML PIGGYBACK IV.SIG PRN (03:35)
[2018-01-23] MEDS ORDERED: Magnesium Sulfate Inj 2 GM in Sodium Chlor 0.9% Inj 96 ML IV.SIG PRN (03:35)
[2018-01-23] MEDS ORDERED: Potassium Phosphate 500 MG Soluble Tablet PO PRN ×2 (03:35)
[2018-01-23] MEDS ORDERED: Sodium Phosphate Inj 30 MMOL in Sodium Chlor 0.9% Inj 250 ML IV.SIG PRN (03:35)
[2018-01-23] MEDS ORDERED: Magnesium Oxide 400 MG Tablet PO PRN (03:35)
[2018-01-23] MEDS ORDERED: Potassium Chloride 25 MEQ Effervescent Tablet PO PRN (03:35)
[2018-01-23] MEDS ORDERED: Magnesium Sulfate Inj 4 GM in Sodium Chlor 0.9% Inj 92 ML IV.SIG PRN (03:35)
[2018-01-23] MEDS ORDERED: Potassium Chlor 40 mEq Premix 40 MEQ/100 ML PIGGYBACK IV.SIG PRN ×2 (03:35)
[2018-01-23] MEDS ORDERED: Potassium Phosphate Inj 30 MMOL in Sodium Chlor 0.9% Inj 250 ML IV.SIG PRN (03:35)
[2018-01-23] MEDS: Dextrose 5% in Water Inj 1,000 ML IV.SIG SCH ×5 (03:36→23:04)
[2018-01-23] MEDS: Chlorhexidine Gluconate 2% 1 Pack (2 Cloths) TOPICAL SCH (03:54)
[2018-01-23] MEDS: Insulin Detemir Inj 1,000 UNIT/10 ML Vial SQ SCH ×2 (04:34→17:11)
[2018-01-23 06:13] LABS: Hematocrit 38.9 % (35.0-46.0); Hemoglobin 12.8 gm/dL (11.6-15.3); Mean Corpuscular Hemoglobin 28.5 pg (27.0-34.0); Mean Corpuscular Volume 86.4 fL (80.0-100.0); Mean Platelet Volume 10.5 fL (7.0-11.0); Platelet Count 195 th/mm3 (150-450); Red Blood Count 4.51 mil/mm3 (4.00-5.30); White Blood Count 15.8 th/mm3 (4.0-11.0)
[2018-01-23] MEDS: Senna/Docusate Sodium 8.6/50 MG Tablet PO SCH ×2 (08:59→21:02)
[2018-01-23] MEDS: Famotidine PF Inj 20 MG/2 ML Vial IV.PUSH SCH ×2 (08:59→20:56)
[2018-01-23] MEDS: Potassium Chlor 20 mEq Premix 20 MEQ/100 ML PIGGYBACK IV.SIG PRN ×2 (09:01→12:15)
[2018-01-23 09:29] LABS: Alanine Aminotransferase 13 U/L (10-53)
[2018-01-23 09:31] LABS: Alkaline Phosphatase 85 U/L (45-117); Total Protein 5.7 g/dL (6.4-8.2)
[2018-01-23 09:37] LABS: Albumin 2.5 g/dL (3.4-5.0); Anion Gap 11 meq/L (5-15); Aspartate Aminotransferase 17 U/L (15-37); Blood Urea Nitrogen 5 mg/dL (7-18); Calcium 8.3 mg/dL (8.5-10.1); Carbon Dioxide 18.8 meq/L (21.0-32.0); Chloride 119 meq/L (98-107); Glomerular Filtration Rate 78 mL/min (>89); Glucose,Random 202 mg/dL (74-106)
[2018-01-23 09:38] LABS: Potassium 3.8 meq/L (3.5-5.1); Sodium 149 meq/L (136-145)
--- NOTE | 2018-01-23 13:21 | P.DIET ---
Nutritional Evaluation Type of nutrition evaluation: initial Nutrition screening: MDC (diet education for diabetes) Objective - Diagnosis DKA Assessment Assessment: [facility] [place] for diabetic diet education. Pt was receptive and attentive during education. Pts mother was present and stated she was a diabetic for a few years. Both pt and mother understood carb counting and diabetic portion control. Recommendations: RD to follow up with pt if there are questions
--- NOTE | 2018-01-23 14:51 | P.PN ---
Subjective Interval history: In nad,was more awake and alert today. Had public health educator. Also patient's mom at bedside she is also diabetic and knowledgeable. Patient feels much better today. Tolerates clears no nausea or vomiting today. No diarrhea constipation. No abdominal pain. No fever or chills. Denies chest pin or sob Physical Exam Vital signs: Vital Signs 01/22/18 15:00 01/22/18 16:00 01/22/18 17:00 Temperature Pulse Rate 122 H 122 H 116 H Respiratory Rate 27 H 19 12 Blood Pressure 140/84 141/86 H 129/82 Pulse Oximetry 100 100 100 01/22/18 18:00 01/22/18 19:00 01/22/18 20:00 Temperature 99 F Pulse Rate 127 H 113 H 114 H Respiratory Rate 14 15 31 H Blood Pressure 129/81 122/73 125/74 Pulse Oximetry 99 98 98 01/22/18 21:00 01/22/18 22:00 01/22/18 23:00 Temperature Pulse Rate 122 H 121 H 118 H Respiratory Rate 14 25 H 12 Blood Pressure 130/74 138/79 144/79 H Pulse Oximetry 99 97 100 01/23/18 00:00 01/23/18 01:00 01/23/18 01:58 Temperature 99 F Pulse Rate 121 H 117 H 124 H Respiratory Rate 12 14 Blood Pressure 146/74 H 146/79 H Pulse Oximetry 97 97 01/23/18 02:00 01/23/18 03:00 01/23/18 03:37 Temperature Pulse Rate 124 H 124 H 125 H Respiratory Rate 13 25 H Blood Pressure 140/74 147/93 H Pulse Oximetry 96 100 01/23/18 03:42 01/23/18 04:00 01/23/18 04:49 Temperature 99.3 F Pulse Rate 120 H 123 H Respiratory Rate 16 25 H Blood Pressure 120/67 Pulse Oximetry 98 01/23/18 05:00 01/23/18 06:00 01/23/18 07:00 Temperature Pulse Rate 126 H 125 H 116 H Respiratory Rate 17 17 16 Blood Pressure 145/72 H 137/68 132/72 Pulse Oximetry 98 96 97 01/23/18 08:00 01/23/18 09:00 01/23/18 09:09 Temperature 100 F H Pulse Rate 115 H 113 H 117 H Respiratory Rate 14 14 13 Blood Pressure 144/78 H 141/78 H Pulse Oximetry 98 98 99 01/23/18 10:00 01/23/18 10:36 01/23/18 11:00 Temperature Pulse Rate 114 H 120 H Respiratory Rate 13 11 L Blood Pressure Pulse Oximetry 99 97 99 01/23/18 12:00 01/23/18 14:00 Temperature 98.8 F Pulse Rate 113 H 111 H Respiratory Rate 14 Blood Pressure Pulse Oximetry 98 Intake & Output 01/22/18 01/23/18 01/23/18 18:59 06:59 18:59 Intake Total 2150 / 2150 1300 / 1300 300 / 300 Output Total 2800 / 2800 1400 / 1400 Balance -650 / -650 -100 / -100 300 / 300 Weight 86.5 kg Intake: IV 2100 / 2100 1100 / 1100 300 / 300 NS Inj 1,000 ML @ 250 mls/hr IV 1999 / 1999 .CONT .Q4H [facility] Rx#:[id number] D5W Inj 1,000 ML @ 200 mls/hr 1000 / 1000 IV.SIG .Q5H [facility] Rx#:[id number] KCl 20 mEq Premix Inj 20 meq In 100 / 100 100 / 100 200 / 200 100 ml @ 50 mls/hr IV.SIG Q2H PRN Rx#:[id number] Oral 50 / 50 200 / 200 Output: Urine 1400 / 1400 Urine Amount (Catheter) 2800 / 2800 Indwelling Urethral Catheter 2800 / 2800 Narrative: GENERAL: Very pleasant young female, appears in not acute distress. CARDIOVASCULAR: Regular rate and rhythm. RESPIRATORY: No accessory muscle use. Clear to auscultation. Breath sounds equal bilaterally. GASTROINTESTINAL: Abdomen soft, non-tender, nondistended. Hepatic and splenic margins not palpable. MUSCULOSKELETAL: Extremities without clubbing, cyanosis, or edema. No obvious deformities. NEUROLOGICAL: Awake and alert. No obvious cranial nerve deficits. Motor grossly within normal limits. Five out of 5 muscle strength in the arms and legs. Normal speech. PSYCHIATRIC: Appropriate mood and affect; insight and judgment normal. - Urinary Catheter Management Indwelling Urethral Catheter Cath placed during this visit: yes Reason for continuing: Hourly intake/output Insertion date: 01/21/18 Insertion time: 23:01 Results - Labs CBC & Chem 7: 01/23/18 03:39 01/23/18 09:02 Laboratory Results - last 24 hr 01/22/18 01/22/18 01/22/18 14:59 15:58 18:00 WBC RBC Hgb Hct MCV MCH MCHC RDW Plt Count MPV Sodium 152 H Potassium 4.1 Chloride 123 H Carbon Dioxide 15.1 L Anion Gap 14 BUN 13 Creatinine 1.37 H Estimated GFR 55 L POC Glucose 151 H 197 H Random Glucose 262 H D Calcium 7.6 L Magnesium Total Bilirubin AST ALT Alkaline Phosphatase Total Protein Albumin 01/22/18 01/22/18 01/22/18 18:47 20:41 22:14 WBC RBC Hgb Hct MCV MCH MCHC RDW Plt Count MPV Sodium 152 H Potassium 3.1 L D Chloride 120 H Carbon Dioxide 17.4 L Anion Gap 15 BUN 10 Creatinine 1.12 H Estimated GFR 70 L POC Glucose 317 H 316 H Random Glucose 276 H Calcium 8.0 L Magnesium 2.1 Total Bilirubin 0.3 AST 10 L ALT 11 Alkaline Phosphatase 93 Total Protein 5.6 L Albumin 2.8 L 01/23/18 01/23/18 01/23/18 03:30 03:39 08:24 WBC 15.8 H RBC 4.51 Hgb 12.8 Hct 38.9 MCV 86.4 D MCH 28.5 MCHC 33.0 RDW 15.0 Plt Count 195 MPV 10.5 Sodium Potassium Chloride Carbon Dioxide Anion Gap BUN Creatinine Estimated GFR POC Glucose 193 H 180 H Random Glucose Calcium Magnesium Total Bilirubin AST ALT Alkaline Phosphatase Total Protein Albumin 01/23/18 01/23/18 09:02 11:54 WBC RBC Hgb Hct MCV MCH MCHC RDW Plt Count MPV Sodium 149 H Potassium 3.8 Chloride 119 H Carbon Dioxide 18.8 L Anion Gap 11 BUN 5 L Creatinine 1.02 H Estimated GFR 78 L POC Glucose 184 H Random Glucose 202 H Calcium 8.3 L Magnesium Total Bilirubin 0.4 AST 17 ALT 13 Alkaline Phosphatase 85 Total Protein 5.7 L Albumin 2.5 L Microbiology 01/22/18 01:20 Blood - Peripheral Aerobic Blood Culture - Preliminary No growth in 1 day 01/22/18 01:20 Blood - Peripheral Anaerobic Blood Culture - Final QNS - See aerobic report. 01/21/18 22:35 Blood - Peripheral Aerobic Blood Culture - Preliminary No growth in 2 days 01/21/18 22:35 Blood - Peripheral Anaerobic Blood Culture - Preliminary No growth in 2 days Assessment and Plan - Plan DKA -Patient admits to diabetes, on insulin also admits to not taking insulin -Insulin drip per DKA protocol -Aggressive IV hydration. Received additional 2 L normal saline boluses -ICU DKA protocol, AG is closed and patient clinically improved. Advance diet. -Transitioned to subcu Levemir and pre-meal NovoLog with sliding scale after anion gap closes. Continue to monitor and adjust insulin as indicated - Had diabetic education Acute kidney injury Hyperkalemia Metabolic acidosis -Dehydration -Aggressive IV fluid resuscitation -Strict I's and O's -Monitor creatinine and electrolyte levels Altered mental status -Due to above -Improving Sinus tachycardia -Continue aggressive fluid resuscitation -Metoprolol 2.5 mg IV every 6 hours as needed for heart rate more than 120 Leukocytosis -Likely stress induced -Blood and urine cultures, follow-up -No antibiotics indicated at this time DVT GI prophylaxis -Teds SCDs -Subcu Lovenox -Pepcid Discussed with the patient, nurse, mother at bedside Transfer to med surg floor
[2018-01-24] MEDS: Dextrose 5% in Water Inj 1,000 ML IV.SIG SCH ×2 (03:15→09:04)
[2018-01-24] MEDS: Insulin NovoLOG Aspart Correctional Sugar Inj SQ SCH ×2 (04:28→09:07)
[2018-01-24] MEDS: Chlorhexidine Gluconate 2% 1 Pack (2 Cloths) TOPICAL SCH (04:28)
[2018-01-24] MEDS: Insulin Detemir Inj 1,000 UNIT/10 ML Vial SQ SCH (04:29)
[2018-01-24 07:00] LABS: Baso % (Auto) 0.3 % (0.0-2.0); Eos # (Auto) 0.2 th/mm3 (0.0-0.4); Eos % (Auto) 2.1 % (0.0-4.0); Hemoglobin 11.4 gm/dL (11.6-15.3); Lymph # (Auto) 2.7 th/mm3 (1.0-4.8); Lymph % (Auto) 24.8 % (9.0-44.0); Mean Corpuscular HGB Conc 33.5 % (32.0-36.0); Mean Corpuscular Hemoglobin 28.8 pg (27.0-34.0); Mean Corpuscular Volume 86.1 fL (80.0-100.0); Mean Platelet Volume 9.7 fL (7.0-11.0); Mono # (Auto) 0.7 th/mm3 (0.0-0.9); Mono % (Auto) 6.7 % (0.0-8.0); Neut # (Auto) 7.2 th/mm3 (1.8-7.7); Neut % (Auto) 66.1 % (16.0-70.0); Platelet Count 162 th/mm3 (150-450); Red Blood Count 3.95 mil/mm3 (4.00-5.30); Red Cell Distribution Width 14.8 % (11.6-17.2); White Blood Count 10.9 th/mm3 (4.0-11.0)
[2018-01-24 07:32] LABS: Anion Gap 11 meq/L (5-15); Blood Urea Nitrogen 7 mg/dL (7-18); Calcium 8.1 mg/dL (8.5-10.1); Carbon Dioxide 24.5 meq/L (21.0-32.0); Chloride 108 meq/L (98-107); Glomerular Filtration Rate Greater Than 89 mL/min (>89); Glucose,Random 183 mg/dL (74-106); Sodium 143 meq/L (136-145)
[2018-01-24 07:38] LABS: Potassium 2.8 meq/L (3.5-5.1)
[2018-01-24] MEDS: Famotidine PF Inj 20 MG/2 ML Vial IV.PUSH SCH ×2 (09:08→23:11)
[2018-01-24] MEDS: Senna/Docusate Sodium 8.6/50 MG Tablet PO SCH ×2 (09:09→23:12)
--- NOTE | 2018-01-24 12:04 | P.PNIM ---
Subjective Interval history: Patient reports some weakness today. Some dizziness exist. Potassium is critically low this morning. No other complaints. Physical Exam Vital signs: Vital Signs 01/23/18 12:00 01/23/18 13:00 01/23/18 14:00 Temperature 98.8 F Pulse Rate 113 H 111 H 113 H Respiratory Rate 14 12 14 Blood Pressure Pulse Oximetry 98 99 99 01/23/18 15:00 01/23/18 16:00 01/23/18 17:18 Temperature 98.2 F Pulse Rate 110 H 114 H 110 H Respiratory Rate 15 12 Blood Pressure 130/71 Pulse Oximetry 98 98 01/23/18 19:00 01/23/18 20:00 01/24/18 00:00 Temperature 98.2 F 98.3 F 97.9 F Pulse Rate 98 H 112 H 105 H Respiratory Rate 18 20 20 Blood Pressure 147/86 H 137/84 128/80 Pulse Oximetry 99 100 100 01/24/18 04:00 01/24/18 05:55 01/24/18 08:00 Temperature 98.1 F 98.0 F Pulse Rate 98 H 97 H Respiratory Rate 20 20 Blood Pressure 137/73 126/63 Pulse Oximetry 98 98 98 01/24/18 09:55 Temperature Pulse Rate Respiratory Rate Blood Pressure Pulse Oximetry 98 Intake & Output 01/23/18 01/24/18 01/24/18 18:59 06:59 18:59 Intake Total 300 / 300 Output Total 950 / 950 Balance -650 / -650 Weight 86.8 kg Intake: IV 300 / 300 KCl 20 mEq Premix Inj 20 meq In 200 / 200 100 ml @ 50 mls/hr IV.SIG Q2H PRN Rx#:[id number] Output: Urine Amount (Catheter) 950 / 950 Indwelling Urethral Catheter 950 / 950 Other: Date of Last Bowel Movement 01/21/18 # Bowel Movements 0 Narrative: GENERAL: NAD, A&Ox3 HEAD: Normocephalic. NECK: Supple, trachea midline. No lymphadenopathy. EYES: No scleral icterus. No injection or drainage. CARDIOVASCULAR: Regular rate and rhythm without murmurs, gallops, or rubs. RESPIRATORY: Breath sounds equal bilaterally. No accessory muscle use. GASTROINTESTINAL: Abdomen soft, non-tender, nondistended. MUSCULOSKELETAL: No cyanosis, or edema. SKIN: Warm and dry. NEURO: No focal neurological deficits. - Urinary Catheter Management Indwelling Urethral Catheter Cath placed during this visit: yes, but has since been removed by the nurse Reason for continuing: Continue criteria not met Insertion date: 01/21/18 Insertion time: 23:01 Removal date: 01/24/18 Removal time: 06:00 Results - Labs CBC & Chem 7: 01/24/18 06:20 01/24/18 06:20 Laboratory Results - last 24 hr 01/23/18 01/23/18 01/24/18 11:54 16:56 06:20 WBC 10.9 RBC 3.95 L Hgb 11.4 L Hct 34.0 L MCV 86.1 MCH 28.8 MCHC 33.5 RDW 14.8 Plt Count 162 MPV 9.7 Neut % (Auto) 66.1 Lymph % (Auto) 24.8 [place] % (Auto) 6.7 Eos % (Auto) 2.1 Baso % (Auto) 0.3 Neut # (Auto) 7.2 Lymph # (Auto) 2.7 [place] # (Auto) 0.7 Eos # (Auto) 0.2 Baso # (Auto) 0.0 WBC Differential . Differential Comment Auto diff final Sodium Potassium Chloride Carbon Dioxide Anion Gap BUN Creatinine Estimated GFR POC Glucose 184 H 93 Random Glucose Calcium 01/24/18 06:20 WBC RBC Hgb Hct MCV MCH MCHC RDW Plt Count MPV Neut % (Auto) Lymph % (Auto) [place] % (Auto) Eos % (Auto) Baso % (Auto) Neut # (Auto) Lymph # (Auto) [place] # (Auto) Eos # (Auto) Baso # (Auto) WBC Differential Differential Comment Sodium 143 Potassium 2.8 L* D Chloride 108 H D Carbon Dioxide 24.5 Anion Gap 11 BUN 7 Creatinine 0.78 Estimated GFR Greater than 89 POC Glucose Random Glucose 183 H Calcium 8.1 L Microbiology 01/22/18 01:20 Blood - Peripheral Aerobic Blood Culture - Preliminary No growth in 2 days 01/22/18 01:20 Blood - Peripheral Anaerobic Blood Culture - Final QNS - See aerobic report. 01/21/18 22:35 Blood - Peripheral Aerobic Blood Culture - Preliminary No growth in 3 days 01/21/18 22:35 Blood - Peripheral Anaerobic Blood Culture - Preliminary No growth in 3 days Assessment and Plan - Assessment (1) DKA (diabetic ketoacidoses) Code(s): E13.10 - Other specified diabetes mellitus with ketoacidosis without coma Status: Acute - Plan 27-year-old female admitted secondary to new onset diabetes with DKA New onset diabetes DKA Blood sugars improving Electrolytes remain disrupted Levemir will be transitioned to [facility] for affordability Continue diabetic diet Continue diabetic education Insulin sliding scale Follow blood sugars Acute kidney injury Hyperkalemia Metabolic acidosis Secondary to dehydration Resolved Discontinue IV hydration Altered mental status Resolved Sinus tachycardia PRN metoprolol Leukocytosis Resolved Etiology was reactivity DVT prophylaxis Continue Lovenox
[2018-01-24] MEDS ORDERED: Dextrose 50% in Water 50 ML Vial IV.PUSH PRN (14:55)
[2018-01-24] MEDS: Morphine Inj 4 MG/ML Vial IV.PUSH PRN (23:14)
[2018-01-25] MEDS: Chlorhexidine Gluconate 2% 1 Pack (2 Cloths) TOPICAL SCH (06:00)
[2018-01-25] MEDS: Enoxaparin Inj 40 MG/0.4 ML Syringe SQ SCH (06:01)
[2018-01-25 08:50] LABS: Baso # (Auto) 0.1 th/mm3 (0.0-0.2); Baso % (Auto) 0.5 % (0.0-2.0); Eos # (Auto) 0.5 th/mm3 (0.0-0.4); Eos % (Auto) 4.6 % (0.0-4.0); Hematocrit 34.5 % (35.0-46.0); Hemoglobin 11.4 gm/dL (11.6-15.3); Lymph # (Auto) 3.1 th/mm3 (1.0-4.8); Lymph % (Auto) 31.7 % (9.0-44.0); Mean Corpuscular HGB Conc 33.1 % (32.0-36.0); Mean Corpuscular Hemoglobin 28.6 pg (27.0-34.0); Mean Corpuscular Volume 86.5 fL (80.0-100.0); Mean Platelet Volume 9.5 fL (7.0-11.0); Mono # (Auto) 0.7 th/mm3 (0.0-0.9); Mono % (Auto) 6.8 % (0.0-8.0); Neut # (Auto) 5.6 th/mm3 (1.8-7.7); Neut % (Auto) 56.4 % (16.0-70.0); Platelet Count 154 th/mm3 (150-450); Red Blood Count 3.98 mil/mm3 (4.00-5.30); Red Cell Distribution Width 14.8 % (11.6-17.2); White Blood Count 9.9 th/mm3 (4.0-11.0)
[2018-01-25 09:20] LABS: Albumin 2.4 g/dL (3.4-5.0); Anion Gap 16 meq/L (5-15); Aspartate Aminotransferase 14 U/L (15-37); Blood Urea Nitrogen 7 mg/dL (7-18); Carbon Dioxide 22.8 meq/L (21.0-32.0); Chloride 105 meq/L (98-107); Glomerular Filtration Rate Greater Than 89 mL/min (>89); Glucose,Random 233 mg/dL (74-106); Magnesium 2.1 mg/dL (1.5-2.5); Potassium 3.3 meq/L (3.5-5.1); Sodium 144 meq/L (136-145)
[2018-01-25 09:24] LABS: Alanine Aminotransferase 12 U/L (10-53); Alkaline Phosphatase 82 U/L (45-117); Total Protein 5.6 g/dL (6.4-8.2)
[2018-01-25] MEDS: Senna/Docusate Sodium 8.6/50 MG Tablet PO SCH ×2 (10:13→20:14)
[2018-01-25] MEDS: Famotidine PF Inj 20 MG/2 ML Vial IV.PUSH SCH ×2 (10:13→20:14)
--- NOTE | 2018-01-25 15:11 | P.PNIM ---
Subjective Interval history: Potassium level improved compared to previous day, however this remains low. Further potassium repletion needed prior to consideration for discharge. Blood sugars show stability but also could use some improvement prior to discharge. Physical Exam Vital signs: Vital Signs 01/24/18 16:00 01/24/18 17:17 01/24/18 20:00 Temperature 98.1 F 97.5 F L Pulse Rate 108 H 90 85 Respiratory Rate 20 18 Blood Pressure 118/78 132/72 Pulse Oximetry 99 98 01/25/18 00:00 01/25/18 04:00 01/25/18 05:59 Temperature 98.3 F 98 F Pulse Rate 113 H 94 H Respiratory Rate 18 18 16 Blood Pressure 136/80 125/74 Pulse Oximetry 100 99 01/25/18 08:00 01/25/18 12:00 Temperature 97.3 F L 97.8 F Pulse Rate 92 H 79 Respiratory Rate 18 20 Blood Pressure 132/84 141/67 H Pulse Oximetry 100 96 Intake & Output 01/24/18 01/25/18 01/25/18 18:59 06:59 18:59 Weight 86.8 kg Narrative: GENERAL: NAD, A&Ox3 HEAD: Normocephalic. NECK: Supple, trachea midline. No lymphadenopathy. EYES: No scleral icterus. No injection or drainage. CARDIOVASCULAR: Regular rate and rhythm without murmurs, gallops, or rubs. RESPIRATORY: Breath sounds equal bilaterally. No accessory muscle use. GASTROINTESTINAL: Abdomen soft, non-tender, nondistended. MUSCULOSKELETAL: No cyanosis, or edema. SKIN: Warm and dry. NEURO: No focal neurological deficits. - Urinary Catheter Management Indwelling Urethral Catheter Cath placed during this visit: yes, but has since been removed by the nurse Reason for continuing: Continue criteria not met Insertion date: 01/21/18 Insertion time: 23:01 Removal date: 01/24/18 Removal time: 06:00 Results - Labs CBC & Chem 7: 01/25/18 08:30 01/25/18 14:03 Laboratory Results - last 24 hr 01/24/18 01/24/18 01/25/18 15:50 23:05 07:27 WBC RBC Hgb Hct MCV MCH MCHC RDW Plt Count MPV Neut % (Auto) Lymph % (Auto) [place] % (Auto) Eos % (Auto) Baso % (Auto) Neut # (Auto) Lymph # (Auto) [place] # (Auto) Eos # (Auto) Baso # (Auto) WBC Differential Differential Comment Sodium Potassium 3.0 L Chloride Carbon Dioxide Anion Gap BUN Creatinine Estimated GFR POC Glucose 220 H 215 H Random Glucose Calcium Magnesium Total Bilirubin AST ALT Alkaline Phosphatase Total Protein Albumin 01/25/18 01/25/18 01/25/18 08:30 08:30 14:03 WBC 9.9 RBC 3.98 L Hgb 11.4 L Hct 34.5 L MCV 86.5 MCH 28.6 MCHC 33.1 RDW 14.8 Plt Count 154 MPV 9.5 Neut % (Auto) 56.4 Lymph % (Auto) 31.7 [place] % (Auto) 6.8 Eos % (Auto) 4.6 H Baso % (Auto) 0.5 Neut # (Auto) 5.6 Lymph # (Auto) 3.1 [place] # (Auto) 0.7 Eos # (Auto) 0.5 H Baso # (Auto) 0.1 WBC Differential . Differential Comment Auto diff final Sodium 144 Potassium 3.3 L 3.3 L Chloride 105 Carbon Dioxide 22.8 Anion Gap 16 H BUN 7 Creatinine 0.54 Estimated GFR Greater than 89 POC Glucose Random Glucose 233 H Calcium 8.0 L Magnesium 2.1 Total Bilirubin 0.5 AST 14 L ALT 12 Alkaline Phosphatase 82 Total Protein 5.6 L Albumin 2.4 L Microbiology 01/22/18 01:20 Blood - Peripheral Aerobic Blood Culture - Preliminary No growth in 3 days 01/22/18 01:20 Blood - Peripheral Anaerobic Blood Culture - Final QNS - See aerobic report. 01/21/18 22:35 Blood - Peripheral Aerobic Blood Culture - Preliminary No growth in 4 days 01/21/18 22:35 Blood - Peripheral Anaerobic Blood Culture - Preliminary No growth in 4 days Assessment and Plan - Assessment (1) DKA (diabetic ketoacidoses) Code(s): E13.10 - Other specified diabetes mellitus with ketoacidosis without coma Status: Acute - Plan 27-year-old female admitted secondary to new onset diabetes with DKA Continue to follow blood sugars. Continue replacing potassium as needed. Potential for discharge tomorrow. New onset diabetes DKA Blood sugars improving Electrolytes remain disrupted Levemir will be transitioned to [facility] for affordability Continue diabetic diet Continue diabetic education Insulin sliding scale Follow blood sugars Acute kidney injury Hyperkalemia Metabolic acidosis Secondary to dehydration Resolved Discontinue IV hydration Altered mental status Resolved Sinus tachycardia PRN metoprolol Leukocytosis Resolved Etiology was reactivity DVT prophylaxis Continue Lovenox Discharge planning Possible discharge tomorrow if potassium and blood sugars are improved
[2018-01-26] MEDS: Enoxaparin Inj 40 MG/0.4 ML Syringe SQ SCH ×2 (00:58→23:17)
[2018-01-26 03:14] LABS: Baso # (Auto) 0.1 th/mm3 (0.0-0.2); Baso % (Auto) 0.6 % (0.0-2.0); Eos # (Auto) 0.6 th/mm3 (0.0-0.4); Eos % (Auto) 5.8 % (0.0-4.0); Hematocrit 35.9 % (35.0-46.0); Hemoglobin 11.5 gm/dL (11.6-15.3); Lymph # (Auto) 3.1 th/mm3 (1.0-4.8); Lymph % (Auto) 31.6 % (9.0-44.0); Mean Corpuscular HGB Conc 32.1 % (32.0-36.0); Mean Corpuscular Hemoglobin 28.1 pg (27.0-34.0); Mean Corpuscular Volume 87.6 fL (80.0-100.0); Mean Platelet Volume 9.8 fL (7.0-11.0); Mono # (Auto) 0.7 th/mm3 (0.0-0.9); Mono % (Auto) 6.8 % (0.0-8.0); Neut # (Auto) 5.3 th/mm3 (1.8-7.7); Neut % (Auto) 55.2 % (16.0-70.0); Platelet Count 170 th/mm3 (150-450); Red Blood Count 4.09 mil/mm3 (4.00-5.30); White Blood Count 9.7 th/mm3 (4.0-11.0)
[2018-01-26] MEDS: Chlorhexidine Gluconate 2% 1 Pack (2 Cloths) TOPICAL SCH (03:31)
[2018-01-26 03:58] LABS: Alanine Aminotransferase 14 U/L (10-53); Albumin 2.6 g/dL (3.4-5.0); Alkaline Phosphatase 83 U/L (45-117); Anion Gap 11 meq/L (5-15); Aspartate Aminotransferase 12 U/L (15-37); Blood Urea Nitrogen 6 mg/dL (7-18); Carbon Dioxide 27.2 meq/L (21.0-32.0); Chloride 103 meq/L (98-107); Glomerular Filtration Rate Greater Than 89 mL/min (>89); Glucose,Random 279 mg/dL (74-106); Sodium 141 meq/L (136-145); Total Protein 5.8 g/dL (6.4-8.2)
[2018-01-26 03:59] LABS: Potassium 2.9 meq/L (3.5-5.1)
[2018-01-26] MEDS: Famotidine PF Inj 20 MG/2 ML Vial IV.PUSH SCH ×2 (09:37→21:19)
[2018-01-26] MEDS: Senna/Docusate Sodium 8.6/50 MG Tablet PO SCH ×2 (09:38→21:47)
[2018-01-26] MEDS ORDERED: Potassium Chloride Inj 20 MEQ, Magnesium Sulfate Inj 2 GM in Dextrose 5%/NaCl 0.45% Inj... IV.SIG ONE (11:00)
--- NOTE | 2018-01-26 11:26 | P.PNIM ---
Subjective Interval history: Nursing denies any acute events overnight. Patient still says she feels good, so she could possibly be at home. Potassium was noted to be 2.9 this morning. Physical Exam Vital signs: Vital Signs 01/25/18 12:00 01/25/18 16:00 01/25/18 19:32 Temperature 97.8 F 97.7 F Pulse Rate 91 H 87 Respiratory Rate 20 20 Blood Pressure 141/67 H 122/65 Pulse Oximetry 96 99 97 01/25/18 20:00 01/25/18 22:00 01/26/18 00:00 Temperature 97.9 F 98 F Pulse Rate 92 H 80 89 Respiratory Rate 18 18 Blood Pressure 125/69 117/63 Pulse Oximetry 99 99 01/26/18 02:00 01/26/18 04:00 01/26/18 06:00 Temperature 97.8 F Pulse Rate 75 81 88 Respiratory Rate 18 Blood Pressure 116/71 Pulse Oximetry 99 01/26/18 08:00 Temperature 98.0 F Pulse Rate 75 Respiratory Rate 16 Blood Pressure 112/61 Pulse Oximetry 96 Intake & Output 01/25/18 01/26/18 01/26/18 18:59 06:59 18:59 Weight 86.7 kg Other: Date of Last Bowel Movement 01/25/18 Narrative: Heart sounds regular rate rhythm, no murmurs Clear lungs bilaterally, unlabored breathing Awake alert, no acute distress - Urinary Catheter Management Indwelling Urethral Catheter Cath placed during this visit: yes, but has since been removed by the nurse Reason for continuing: Continue criteria not met Insertion date: 01/21/18 Insertion time: 23:01 Removal date: 01/24/18 Removal time: 06:00 Results - Labs CBC & Chem 7: 01/26/18 02:43 01/28/18 02:34 Laboratory Results - last 24 hr 01/25/18 01/25/18 01/26/18 14:03 20:09 02:43 WBC 9.7 RBC 4.09 Hgb 11.5 L Hct 35.9 MCV 87.6 MCH 28.1 MCHC 32.1 RDW 15.0 Plt Count 170 MPV 9.8 Neut % (Auto) 55.2 Lymph % (Auto) 31.6 [place] % (Auto) 6.8 Eos % (Auto) 5.8 H Baso % (Auto) 0.6 Neut # (Auto) 5.3 Lymph # (Auto) 3.1 [place] # (Auto) 0.7 Eos # (Auto) 0.6 H Baso # (Auto) 0.1 WBC Differential . Differential Comment Auto diff final Sodium Potassium 3.3 L Chloride Carbon Dioxide Anion Gap BUN Creatinine Estimated GFR POC Glucose 346 H Random Glucose Calcium Total Bilirubin AST ALT Alkaline Phosphatase Total Protein Albumin 01/26/18 01/26/18 01/26/18 02:43 03:25 08:21 WBC RBC Hgb Hct MCV MCH MCHC RDW Plt Count MPV Neut % (Auto) Lymph % (Auto) [place] % (Auto) Eos % (Auto) Baso % (Auto) Neut # (Auto) Lymph # (Auto) [place] # (Auto) Eos # (Auto) Baso # (Auto) WBC Differential Differential Comment Sodium 141 Potassium 2.9 L* Chloride 103 Carbon Dioxide 27.2 Anion Gap 11 BUN 6 L Creatinine 0.68 Estimated GFR Greater than 89 POC Glucose 339 H 222 H Random Glucose 279 H Calcium 8.0 L Total Bilirubin 0.3 AST 12 L ALT 14 Alkaline Phosphatase 83 Total Protein 5.8 L Albumin 2.6 L Microbiology 01/22/18 01:20 Blood - Peripheral Aerobic Blood Culture - Preliminary No growth in 4 days 01/22/18 01:20 Blood - Peripheral Anaerobic Blood Culture - Final QNS - See aerobic report. 01/21/18 22:35 Blood - Peripheral Aerobic Blood Culture - Final No growth in 5 days 01/21/18 22:35 Blood - Peripheral Anaerobic Blood Culture - Final No growth in 5 days Assessment and Plan - Assessment (1) DKA (diabetic ketoacidoses) Code(s): E13.10 - Other specified diabetes mellitus with ketoacidosis without coma Status: Acute - Plan 27-year-old black female admitted for DKA. DKA, metabolic acidosis, AMS, leukocytosis all resolved. Uncontrolled diabetes nph, will increase dose due to still uncontrolled sugars -We will order serum insulin and serum c-peptide to help distinguish between type I and type -SSI Hypokalemia Will likely need p.o. daily replacement, ordering IV and p.o. replacement now DVT prophylaxis Continue Lovenox Discharge planning Possible discharge tomorrow if potassium and blood sugars are improved (1) DKA (diabetic ketoacidoses) Qualifiers: Diabetes mellitus type: type 1 Diabetes mellitus complication detail: without coma Qualified Code(s): E10.10 - Type 1 diabetes mellitus with ketoacidosis without coma
[2018-01-27] MEDS: Senna/Docusate Sodium 8.6/50 MG Tablet PO SCH ×2 (09:13→20:55)
[2018-01-27] MEDS: Famotidine PF Inj 20 MG/2 ML Vial IV.PUSH SCH ×2 (09:14→20:54)
[2018-01-27 09:48] LABS: Anion Gap 10 meq/L (5-15); Blood Urea Nitrogen 5 mg/dL (7-18); Calcium 8.1 mg/dL (8.5-10.1); Carbon Dioxide 27.8 meq/L (21.0-32.0); Chloride 105 meq/L (98-107); Glomerular Filtration Rate Greater Than 89 mL/min (>89); Glucose,Random 215 mg/dL (74-106); Sodium 143 meq/L (136-145)
[2018-01-27 09:52] LABS: Potassium 2.9 meq/L (3.5-5.1)
--- NOTE | 2018-01-27 11:32 | P.PN ---
Subjective Interval history: Follow up for DKA, hypokalemia: Patient seen and examined, better. Eating well. No nausea, no vomiting, no diarrhea. No abdominal pain. No chest pain, no shortness of breath. No fever. Blood sugars 300s overnight, most recent 229. Physical Exam Vital signs: Vital Signs 01/26/18 12:00 01/26/18 16:00 01/26/18 19:44 Temperature 97.9 F 97.8 F 97.9 F Pulse Rate 82 94 H 92 H Respiratory Rate 15 20 18 Blood Pressure 132/75 108/57 L 111/67 Pulse Oximetry 97 97 92 L 01/26/18 20:00 01/27/18 00:00 01/27/18 04:00 Temperature 97.8 F 98.0 F Pulse Rate 91 H 91 H 83 Respiratory Rate 17 18 Blood Pressure 118/64 112/57 L Pulse Oximetry 97 97 01/27/18 08:00 Temperature 98.4 F Pulse Rate 84 Respiratory Rate 20 Blood Pressure 132/69 Pulse Oximetry 97 Intake & Output 01/26/18 01/27/18 01/27/18 18:59 06:59 18:59 Intake Total 1734 / 1734 900 / 900 Balance 1734 / 1734 900 / 900 Weight 86.9 kg Intake: IV 1014 / 1014 KCl Inj 20 MEQ Magnesium 1014 / 1014 Sulfate Inj 2 GM In D5W/1/2 NS Inj 1,000 ML @ 500 mls/hr IV. SIG ONCE ONE Rx#:[id number] Oral 720 / 720 900 / 900 Other: # Voids 6 8 Date of Last Bowel Movement 01/25/18 # Bowel Movements 2 Narrative: GENERAL: Well-nourished, well-developed patient in no apparent distress. SKIN: Warm and dry. HEAD: Atraumatic. Normocephalic. EYES: Pupils equal and round. No scleral icterus. No injection or drainage. ENT: No nasal bleeding or discharge. Mucous membranes pink and moist. NECK: Trachea midline. No JVD. CARDIOVASCULAR: Regular rate and rhythm. RESPIRATORY: No accessory muscle use. Clear to auscultation. Breath sounds equal bilaterally. GASTROINTESTINAL: Abdomen soft, non-tender, nondistended. Hepatic and splenic margins not palpable. MUSCULOSKELETAL: Extremities without clubbing, cyanosis, or edema. No obvious deformities. NEUROLOGICAL: Awake and alert. No obvious cranial nerve deficits. Motor grossly within normal limits. Five out of 5 muscle strength in the arms and legs. Normal speech. PSYCHIATRIC: Appropriate mood and affect; insight and judgment normal. - Urinary Catheter Management Indwelling Urethral Catheter Cath placed during this visit: yes, but has since been removed by the nurse Reason for continuing: Continue criteria not met Insertion date: 01/21/18 Insertion time: 23:01 Removal date: 01/24/18 Removal time: 06:00 Results - Labs CBC & Chem 7: 01/26/18 02:43 01/28/18 02:34 Laboratory Results - last 24 hr 01/26/18 01/27/18 01/27/18 13:10 07:43 09:03 Sodium 143 Potassium 2.9 L* Chloride 105 Carbon Dioxide 27.8 Anion Gap 10 BUN 5 L Creatinine 0.50 Estimated GFR Greater than 89 POC Glucose 263 H 229 H Random Glucose 215 H Calcium 8.1 L Microbiology 01/22/18 01:20 Blood - Peripheral Aerobic Blood Culture - Final No growth in 5 days 01/22/18 01:20 Blood - Peripheral Anaerobic Blood Culture - Final QNS - See aerobic report. 01/21/18 22:35 Blood - Peripheral Aerobic Blood Culture - Final No growth in 5 days 01/21/18 22:35 Blood - Peripheral Anaerobic Blood Culture - Final No growth in 5 days Assessment and Plan - Assessment (1) DKA (diabetic ketoacidoses) Code(s): E13.10 - Other specified diabetes mellitus with ketoacidosis without coma Status: Acute (2) Hypokalemia Code(s): E87.6 - Hypokalemia Status: Acute (3) Asthma Code(s): J45.909 - Unspecified asthma, uncomplicated Status: Acute - Plan 27-year-old black female admitted for DKA. DKA, metabolic acidosis, AMS, leukocytosis all resolved. Uncontrolled diabetes Continue with NPH, 17 units daytime and 14 units at night Blood sugars remain elevated, up to 300s overnight. Will add aspart 7 units before meals Continue with Accu-Cheks and sliding scale -Diabetic diet distribution system operator -We will order serum insulin and serum c-peptide -SSI -Insulin level and C-peptide pending Hypokalemia remains hypokalemic due to hyperglycemia. -K 2.9, will give 40 meq PO BID Leukocytosis on admission -Blood cultures negative Leukocytosis resolved Monitor for fevers DVT prophylaxis-Continue Lovenox GI prophylaxis-Pepcid Code Status: Full code Discussed Condition With: RN, pt, Discharge Planning: Still hypokalemic, plan to dc tomorrow (1) DKA (diabetic ketoacidoses) Qualifiers: Diabetes mellitus type: type 1 Diabetes mellitus complication detail: without coma Qualified Code(s): E10.10 - Type 1 diabetes mellitus with ketoacidosis without coma (3) Asthma Qualifiers: Asthma severity: mild Asthma persistence: unspecified Asthma complication type: uncomplicated Qualified Code(s): J45.909 - Unspecified asthma, uncomplicated
[2018-01-27] MEDS: Insulin NovoLOG Aspart Correctional Sugar Inj SQ SCH ×2 (13:31→18:25)
[2018-01-27] MEDS ORDERED: Potassium Chloride 25 MEQ Effervescent Tablet PO ONE (17:47)
[2018-01-27 22:49] LABS: Hemoglobin A1c 19.4 % (4.3-6.0)
[2018-01-27] MEDS: Enoxaparin Inj 40 MG/0.4 ML Syringe SQ SCH (23:04)
[2018-01-28 03:07] LABS: Anion Gap 7 meq/L (5-15); Blood Urea Nitrogen 5 mg/dL (7-18); Calcium 8.3 mg/dL (8.5-10.1); Carbon Dioxide 27.2 meq/L (21.0-32.0); Chloride 110 meq/L (98-107); Glomerular Filtration Rate Greater Than 89 mL/min (>89); Glucose,Random 251 mg/dL (74-106); Potassium 3.7 meq/L (3.5-5.1); Sodium 144 meq/L (136-145)
--- NOTE | 2018-01-28 08:35 | P.PN ---
Subjective Interval history: Follow up for DKA, hypokalemia: Patient seen and examined. Blood glucose improved overnight, 220s. No chest pain, no shortness of breath. Potassium normal. No fever. Discussed hemoglobin A1c results, questions answered. Physical Exam Vital signs: Vital Signs 01/27/18 12:00 01/27/18 12:33 01/27/18 16:00 Temperature 98.4 F Pulse Rate 94 H 95 H Respiratory Rate 20 Blood Pressure 115/69 Pulse Oximetry 96 98 01/27/18 16:22 01/27/18 20:00 01/28/18 00:00 Temperature 98.4 F 98.1 F 97.8 F Pulse Rate 95 H 117 H 89 Respiratory Rate 18 18 18 Blood Pressure 113/59 L 134/80 107/64 Pulse Oximetry 98 97 91 L 01/28/18 03:38 01/28/18 04:00 Temperature 97.8 F Pulse Rate 88 92 H Respiratory Rate 16 Blood Pressure 106/69 Pulse Oximetry 99 Intake & Output 01/27/18 01/28/18 01/28/18 18:59 06:59 18:59 Intake Total 960 / 960 Balance 960 / 960 Weight 90.4 kg Intake: Oral 960 / 960 Other: # Voids 6 3 Date of Last Bowel Movement 01/25/18 # Bowel Movements 1 Narrative: GENERAL: Well-nourished, well-developed patient in no apparent distress. SKIN: Warm and dry. HEAD: Atraumatic. Normocephalic. EYES: Pupils equal and round. No scleral icterus. No injection or drainage. ENT: No nasal bleeding or discharge. Mucous membranes pink and moist. NECK: Trachea midline. No JVD. CARDIOVASCULAR: Regular rate and rhythm. RESPIRATORY: No accessory muscle use. Clear to auscultation. Breath sounds equal bilaterally. GASTROINTESTINAL: Abdomen soft, non-tender, nondistended. Hepatic and splenic margins not palpable. MUSCULOSKELETAL: Extremities without clubbing, cyanosis, or edema. No obvious deformities. NEUROLOGICAL: Awake and alert. No obvious cranial nerve deficits. Motor grossly within normal limits. Five out of 5 muscle strength in the arms and legs. Normal speech. PSYCHIATRIC: Appropriate mood and affect; insight and judgment normal. - Urinary Catheter Management Indwelling Urethral Catheter Cath placed during this visit: yes, but has since been removed by the nurse Reason for continuing: Continue criteria not met Insertion date: 01/21/18 Insertion time: 23:01 Removal date: 01/24/18 Removal time: 06:00 Results - Labs CBC & Chem 7: 01/26/18 02:43 01/28/18 02:34 Laboratory Results - last 24 hr 01/27/18 01/27/18 01/27/18 09:03 12:29 14:02 Sodium 143 Potassium 2.9 L* 3.0 L Chloride 105 Carbon Dioxide 27.8 Anion Gap 10 BUN 5 L Creatinine 0.50 Estimated GFR Greater than 89 POC Glucose 285 H Random Glucose 215 H Hemoglobin A1c Calcium 8.1 L 01/27/18 01/27/18 01/28/18 14:02 17:34 02:34 Sodium 144 Potassium 3.7 Chloride 110 H Carbon Dioxide 27.2 Anion Gap 7 BUN 5 L Creatinine 0.61 Estimated GFR Greater than 89 POC Glucose 224 H Random Glucose 251 H Hemoglobin A1c 19.4 H Calcium 8.3 L 01/28/18 07:30 Sodium Potassium Chloride Carbon Dioxide Anion Gap BUN Creatinine Estimated GFR POC Glucose 234 H Random Glucose Hemoglobin A1c Calcium Microbiology 01/22/18 01:20 Blood - Peripheral Aerobic Blood Culture - Final No growth in 5 days 01/22/18 01:20 Blood - Peripheral Anaerobic Blood Culture - Final QNS - See aerobic report. Assessment and Plan - Assessment (1) DKA (diabetic ketoacidoses) Code(s): E13.10 - Other specified diabetes mellitus with ketoacidosis without coma Status: Acute (2) Hypokalemia Code(s): E87.6 - Hypokalemia Status: Acute (3) Asthma Code(s): J45.909 - Unspecified asthma, uncomplicated Status: Acute - Plan 27-year-old black female admitted for DKA. DKA, metabolic acidosis, AMS, leukocytosis all resolved. Uncontrolled diabetes Continue with NPH, 17 units daytime and 14 units at night Blood sugars improved, 220s. Continue with aspart 7 units before meals Continue with Accu-Cheks and sliding scale -Diabetic diet reports analyst-input appreciated -SSI -Insulin level and C-peptide pending -Hemoglobin A1c 19.7-poorly controlled. Discussed with patient in detail. Hypokalemia Potassium 3.7 today Leukocytosis on admission -Blood cultures negative Leukocytosis resolved Monitor for fevers DVT prophylaxis-Continue Lovenox GI prophylaxis-Pepcid Reviewed information provided by nurse midwife, patient needs to improve compliance of diabetes. Needs to follow-up at the [facility] within a week. Case management to assist with prescriptions-needs blue card Diabetic diet Activity as tolerated Code Status: Full code Discussed Condition With: RN, patient, case management Discharge Planning: Discharge today (1) DKA (diabetic ketoacidoses) Qualifiers: Diabetes mellitus type: type 1 Diabetes mellitus complication detail: without coma Qualified Code(s): E10.10 - Type 1 diabetes mellitus with ketoacidosis without coma (3) Asthma Qualifiers: Asthma severity: mild Asthma persistence: unspecified Asthma complication type: uncomplicated Qualified Code(s): J45.909 - Unspecified asthma, uncomplicated
[2018-01-28] MEDS: Senna/Docusate Sodium 8.6/50 MG Tablet PO SCH (09:55)
[2018-01-28] MEDS: Insulin NovoLOG Aspart Correctional Sugar Inj SQ SCH ×2 (09:56→12:18)
[2018-01-28] MEDS: Famotidine PF Inj 20 MG/2 ML Vial IV.PUSH SCH (09:57)
--- NOTE | 2018-01-28 17:11 | P.DS ---
Date of admission: 01/21/18 23:12 Primary care physician: No Primary Care Physician Attending physician on discharge: Sandra Kleber Anticipated date of discharge: 01/28/18 Brief History from admission: 27-year-old female presents for an evaluation of an altered mental status. The patient's boyfriend states that the patient was complaining of abdominal pain for which she has been taking Pepto Bismol. She became unresponsive and appeared short of breath just prior to arrival. The patient is currently altered and unable to provide any meaningful contribution to HPI. Her blood sugar level in the emergency department was above 1500 and anion gap of 30. DS: Diagnosis - Discharge Diagnosis (1) DKA (diabetic ketoacidoses) Status: Acute (2) Hypokalemia Status: Acute (3) Asthma Status: Acute DS: Medications - Discharge Medications Prescriptions: insulin aspart U-100 [Novolog U-100 Insulin aspart] 7 unit SUBCUT TIDAC 30 Days #100 ml insulin NPH isoph U-100 human [Novolin N NPH U-100 Insulin] 17 units SUBCUT DAILY@0900 30 Days #100 ml insulin syringe,safetyneedle [BD SafetyGlide Insulin Syringe] #100 each DS: Summary Hospital Course: 27-year-old female presents for an evaluation of an altered mental status. The patient's boyfriend states that the patient was complaining of abdominal pain for which she has been taking Pepto Bismol. She became unresponsive and appeared short of breath just prior to arrival. The patient was altered and unable to provide any meaningful contribution to HPI. Her blood sugar level in the emergency department was above 1500 and anion gap of 30. Pt. admitted with DKA with metabolic acidosis, AMS, Leukocytosis. Blood cultures done, no evidence of infection. WBC started trending down. Initially managed in the ICU , put on insulin gtt, BMP was monitored per protocol. Acidosis resolved, transitioned to accuchecks and SQ insulin. Started on NPH as well. Insulin level and C peptide level done. Hgb A1C 19.7. early childhood educator aide evaluated and provided pt. education and a meter. Was hypokalemic, potassium was replaced. Blood sugars continue to be ended 300 range, pre-meal insulin was added. Case management was consulted to assist with discharge planning. Electrolytes improved, blood glucose started trending down. Patient verbalized understanding in regards to education, was administering insulin herself. She was instructed to follow-up at the [facility]. Pt. was discharged in stable condition. - Time Spent with Patient Total time spent providing and/or coordinating discharge services: 35 minutes Greater than 30 minutes - Quality: VTE Deep Vein Thrombosis/Pulmonary Embolism Present on Admission: No Exam Vital signs: Vital Signs 01/27/18 20:00 01/28/18 00:00 01/28/18 03:38 Temperature 98.1 F 97.8 F 97.8 F Pulse Rate 117 H 89 88 Respiratory Rate 18 18 16 Blood Pressure 134/80 107/64 106/69 Pulse Oximetry 97 91 L 99 01/28/18 04:00 01/28/18 08:00 01/28/18 10:07 Temperature 97.9 F Pulse Rate 92 H 85 Respiratory Rate 16 Blood Pressure 107/73 Pulse Oximetry 96 96 Intake & Output 01/27/18 01/28/18 01/28/18 18:59 06:59 18:59 Intake Total 960 / 960 Balance 960 / 960 Weight 90.4 kg Intake: Oral 960 / 960 Other: # Voids 6 3 Date of Last Bowel Movement 01/25/18 # Bowel Movements 1 Results Procedures completed during hospitalization: NONE Labs on day of discharge: Labs from last 24 hours 01/28/18 01/28/18 01/28/18 11:31 07:30 02:34 Sodium 144 Potassium 3.7 Chloride 110 H Carbon Dioxide 27.2 Anion Gap 7 BUN 5 L Creatinine 0.61 Estimated GFR Greater than 89 POC Glucose 148 H 234 H Random Glucose 251 H Hemoglobin A1c Calcium 8.3 L 01/27/18 01/27/18 17:34 14:02 Sodium Potassium Chloride Carbon Dioxide Anion Gap BUN Creatinine Estimated GFR POC Glucose 224 H Random Glucose Hemoglobin A1c 19.4 H Calcium - Impressions ITS Impressions Abdomen/Pelvis CT 01/21/18 22:34 CONCLUSION: Distended stomach. Chest X-Ray 01/21/18 23:46 CONCLUSION: No acute cardiopulmonary process. Discharge Plan - Discharge Disposition Patient Disposition: 01 Discharge Home - Discharge Condition Condition: Stable - Discharge Order Discharge Orders: Discharge Order (Routine); Ordered 01/28/18 Ordered By: Staci Lala - Discharge Details Anticipated Discharge Date: 01/28/18 - Physicians Team Primary Care Provider: Primary Care Ebony Martinez Attending Provider: Sandra Shahid
[2018-01-29 03:51] LABS: Insulin Blood 6.3 uIU/mL (2.0-19.6)
[2018-01-29 15:53] LABS: C-Peptide 0.8 ng/mL (0.80-3.85)
== END 2018-01-28 13:52 | disposition home or self-care (01) ==
LOC: NEPE 22:12 → NEDA 23:12 → HIMC 01-22 02:00 → N04 01-23 18:32
PROVIDERS: ADMIT Family Medicine; ATTEND Family Medicine

== ENCOUNTER 2018-03-14 07:14 | Inpatient (IN) ==
[2018-03-14] MEDS ORDERED: MethylPREDNISolone Sod Succinate Inj 125 MG/2 ML Vial IV.PUSH ONE (07:26)
[2018-03-14] MEDS ORDERED: MethylPREDNISolone Sod Succinate Inj 125 MG/2 ML Vial ONE (07:28)
--- NOTE | 2018-03-14 07:30 | ED ---
HPI General Chief complaint: Respiratory Symptoms Stated complaint: respiratory Time Seen by Provider: 03/14/18 07:26 Source: patient Mode of arrival: ambulatory Limitations: no limitations History of Present Illness HPI narrative: 28-year-old female patient with history of asthma, diabetes, presents to the ER today because of acute worsening of shortness of breath starting this morning when she woke up. She has tried nebulizers without success. She has been coughing but denies coughing up anything. She denies any fevers or other issues. Modifying Factors: None Associated Signs & Symptoms: Asthma exacerbation Risk Factors: Asthma history Related Data Home Medications Medication Instructions Recorded Confirmed albuterol sulfate 1.25 mg INHALATION QID PRN 03/14/18 03/14/18 insulin NPH isoph U-100 human 14 units SUBCUT ACHS 03/14/18 03/14/18 [Novolin N NPH U-100 Insulin] Previous Rx's Medication Instructions Recorded insulin syringe,safetyneedle [BD #100 each 01/28/18 SafetyGlide Insulin Syringe] albuterol sulfate 2 inh INHALATION Q8H PRN 30 Days 02/13/18 #1 each Allergies Allergy/AdvReac Type Severity Reaction Status Date / Time No Known Allergies Allergy Verified 03/14/18 07:22 Review of Systems ROS: all other systems reviewed are negative [facility] Medical History Medical History delivery delivered (Acute ~01/22/18) Asthma (Acute) Diabetes (Acute) Social History Social History Substance History: No History of Abuse Second Hand Smoke Exposure: No Smoking Status: Never smoker Tobacco Type: Cigarettes How Often Do You Have a Drink Containing Alcohol: Monthly or less Recent Travel in [place] within the Last 8 Weeks: No Recent Out of Country Travel within the Last 8 Weeks: No Immunization History Tetanus Immunization: <5 Years Exam Narrative Exam Narrative: GENERAL: Well-developed young -[place] female patient currently in moderate respiratory distress. Awake and oriented x3. SKIN: Focused skin assessment warm/dry. HEAD: Atraumatic. Normocephalic. EYES: Pupils equal and round. No scleral icterus. No injection or drainage. ENT: No nasal bleeding or discharge. Mucous membranes pink and moist. NECK: Trachea midline. No JVD. CARDIOVASCULAR: Regular rate and rhythm. No murmur appreciated. RESPIRATORY: Moderate accessory muscle use. Wheezing throughout bilaterally. Breath sounds equal bilaterally. GASTROINTESTINAL: Abdomen soft, non-tender, nondistended. Hepatic and splenic margins not palpable. MUSCULOSKELETAL: No obvious deformities. No clubbing. No cyanosis. No edema. NEUROLOGICAL: Awake and alert. No obvious cranial nerve deficits. Motor grossly within normal limits. Normal speech. PSYCHIATRIC: Appropriate mood and affect; insight and judgment normal. Course Initial Documented Vital Signs Temperature 98.0 F 03/14/18 07:16 Pulse Rate 136 H 03/14/18 07:16 Respiratory Rate 24 03/14/18 07:16 Pulse Oximetry 89 L 03/14/18 07:16 Last Documented Vital Signs Temperature 98.0 F 03/14/18 07:16 Pulse Rate 111 H 03/14/18 09:25 Respiratory Rate 15 03/14/18 09:25 Blood Pressure 134/81 03/14/18 09:05 Pulse Oximetry 95 03/14/18 09:05 Medical Decision Making MDM Narrative Medical decision making narrative: Patient was given Solu-Medrol in the ER, multiple nebulizers, and had been reevaluated several times. However, after 6 nebulizer treatments, she is still wheezing. She did look much improved on reevaluation at 9:50 AM. However, after walking to the bathroom, she became winded. My plan at this point would be to admit her as an observation for further treatment. Case was discussed with Dr. Ramos for admission. Medical Screen Exam Complete: Yes Emergency Medical Condition: Yes Differential Diagnosis Differential Diagnosis: Asthma exacerbation versus bronchitis versus pneumonia Lab Data Lab results reviewed: Yes I reviewed the patient's lab results. Result diagrams: 03/14/18 07:34 03/14/18 07:34 POC Results POC Urine Results Negative Lab Results 03/14/18 03/14/18 Range/Units 07:34 07:34 WBC 16.4 H (4.0-11.0) th/mm3 RBC 4.60 (4.00-5.30) mil/mm3 Hgb 13.5 (11.6-15.3) gm/dL Hct 41.1 (35.0-46.0) % MCV 89.4 (80.0-100.0) fL MCH 29.4 (27.0-34.0) pg MCHC 32.9 (32.0-36.0) % RDW 14.4 (11.6-17.2) % Plt Count 272 (150-450) th/mm3 MPV 8.5 (7.0-11.0) fL Prelim Diff (Auto) Manual diff required WBC Differential Manual diff final Seg Neuts % (Manual) 54 (16-70) % Lymphocytes % (Manual) 34 (9-44) % Monocytes % (Manual) 4 (0-8) % Eosinophils % (Manual) 7 H (0-4) % Myelocytes % (Man) 1 H (0-0) % Abs Neuts (Manual) 9.0 H (1.8-7.7) th/mm3 Differential Comment . Platelet Estimate Normal (Normal) Platelet Morphology Normal (Normal) RBC Morphology Normal (Normal) Sodium 138 (136-145) meq/L Potassium 3.8 (3.5-5.1) meq/L Chloride 104 (98-107) meq/L Carbon Dioxide 26.2 (21.0-32.0) meq/L Anion Gap 8 (5-15) meq/L BUN 5 L (7-18) mg/dL Creatinine 0.87 (0.50-1.00) mg/dL Estimated GFR Greater than 89 (>89) mL/min Random Glucose 331 H (74-106) mg/dL Calcium 9.0 (8.5-10.1) mg/dL Total Bilirubin 0.2 (0.2-1.0) mg/dL AST 10 L (15-37) U/L ALT 22 (10-53) U/L Alkaline Phosphatase 104 (45-117) U/L Total Protein 7.7 (6.4-8.2) g/dL Albumin 3.9 (3.4-5.0) g/dL Imaging Data Attestation: I personally reviewed and interpreted this imaging study as follows : Radiologist's impression: Chest X-Ray 03/14/18 07:26 CONCLUSION: Negative examination. Discharge Plan Discharge Disposition Patient Disposition: ED Admit(ED Internal Use Only) Discharge Condition Condition: Stable Discharge Order Discharge Orders: ED Use Only Admit Order (Routine); Ordered 03/14/18 Ordered By: Esther Bellamy Discharge Details Anticipated Discharge Date: 03/14/18 Diagnosis: Asthma exacerbation Physicians Team ED Provider: Esther Bellamy Primary Care Provider: Primary Care Ebony Martinez Rxs /Orders / Referrals /Forms Prescriptions: No Action albuterol sulfate 90 mcg/actuation aerosol powdr breath activated 2 inh INHALATION Q8H PRN (Reason: shortness of breath) 30 Days Qty: 1 RF: 0 insulin syringe,safetyneedle [BD SafetyGlide Insulin Syringe] 1 mL 31 gauge x 15/64" Syringe Qty: 100 RF: 0 insulin NPH isoph U-100 human [Novolin N NPH U-100 Insulin] 100 unit/mL suspension 14 units subcut ACHS RF: 0 albuterol sulfate 1.25 mg/3 mL Solution For Nebulization 1.25 mg INHALATION QID PRN (Reason: Shortness Of Breath) RF: 0 Discharge Interventions Interventions: Vital Signs Last Done: 03/14/18 09:05 Status ED Status: With Doctor
[2018-03-14 07:42] LABS: Hematocrit 41.1 % (35.0-46.0); Hemoglobin 13.5 gm/dL (11.6-15.3); Mean Corpuscular HGB Conc 32.9 % (32.0-36.0); Mean Corpuscular Hemoglobin 29.4 pg (27.0-34.0); Mean Corpuscular Volume 89.4 fL (80.0-100.0); Mean Platelet Volume 8.5 fL (7.0-11.0); Platelet Count 272 th/mm3 (150-450); Red Cell Distribution Width 14.4 % (11.6-17.2); White Blood Count 16.4 th/mm3 (4.0-11.0)
--- NOTE | 2018-03-14 07:55 | XR ---
EXAM DATE: 03/14/2018 7:51 AM EST AGE/SEX: 28 years / Female INDICATIONS: Short of breath. Chest pain. CLINICAL DATA: This is the patient's initial encounter. Patient reports that signs and symptoms have been present for 1 day and indicates a pain score of 3/10. MEDICAL/SURGICAL HISTORY: . Asthma. Diabetes mellitus type II. section. . [place] [facility] [place]. . FINDINGS: A single AP view of the chest demonstrates the lungs to be symmetrically aerated without evidence of mass, infiltrate or effusion. The cardiomediastinal contours are unremarkable. Osseous structures a re intact. CONCLUSION: Negative examination. Electronically signed by: Addis Hernandez MD Board Certified Radiologist 03/14/2018 7:54 AM MALIKA T
[2018-03-14 07:59] LABS: Albumin 3.9 g/dL (3.4-5.0); Anion Gap 8 meq/L (5-15); Aspartate Aminotransferase 10 U/L (15-37); Blood Urea Nitrogen 5 mg/dL (7-18); Carbon Dioxide 26.2 meq/L (21.0-32.0); Chloride 104 meq/L (98-107); Glomerular Filtration Rate Greater Than 89 mL/min (>89); Glucose,Random 331 mg/dL (74-106); Potassium 3.8 meq/L (3.5-5.1); Sodium 138 meq/L (136-145)
[2018-03-14 08:00] LABS: Alanine Aminotransferase 22 U/L (10-53)
[2018-03-14 08:02] LABS: Alkaline Phosphatase 104 U/L (45-117); Total Protein 7.7 g/dL (6.4-8.2)
[2018-03-14 08:22] LABS: Eosinophils 7 % (0-4); Lymphocytes 34 % (9-44); Monocytes 4 % (0-8); Myelocytes 1 % (0-0); Platelet Estimate Normal (Normal); Platelet Morphology Normal (Normal); RBC Morphology Normal (Normal)
[2018-03-14] MEDS ORDERED: Dextrose 50% in Water 50 ML Vial IV.PUSH PRN (11:10)
[2018-03-14] MEDS ORDERED: guaiFENesin/Codeine Syrup 200 MG/20 MG 10 ML UDC PO PRN (11:13)
[2018-03-14] MEDS ORDERED: Bisacodyl 10 MG Supp RECTAL PRN (11:26)
[2018-03-14] MEDS ORDERED: Acetaminophen 325 MG Tablet PO PRN (11:26)
--- NOTE | 2018-03-14 11:32 | P.HPIM ---
History of Present Illness Service: [facility] Primary Care Physician: No Primary Care Physician Chief Complaint: worsening shortness of breath, wheezing, cough History of Present Illness: Patient is a pleasant 28 y/o female with a past medical history significant for asthma and diabetes mellitus. Patient reports severe shortness of breath and wheezing upon awakening this morning. She has used her Albuterol inhaler with no relief in her symptoms. She denies chest pain /discomfort. Reports nonproductive cough. She believes the recent weather change may have been contributing to her worsening symptoms. Patient denies fevers or chills. Patient has had prior hospitalizations for acute asthma exacerbations and one 2016 that required intubation. Patient's O2 sat was noted to be 89% on room air in ED. She received 6 duoneb treatments with slight improvement in her symptoms. Patients white blood cell count is elevated at 16.4. Her chest x-ray shows no acute process. An ABG was completed and unremarkable. Patient continues to remain with diffuse inspiratory and expiratory wheezing. She is being admitted under the care of the Hospitalist service for continued evaluation and management of her symptoms. Review of Systems ROS Unobtainable: other (except as documented all other systems reviewed and negative. ) [facility] Medical History Medical History delivery delivered (Acute ~01/22/18) Asthma (Acute) Diabetes (Acute) Social History Social History Substance History: No History of Abuse Second Hand Smoke Exposure: No Smoking Status: Never smoker Tobacco Type: Cigarettes How Often Do You Have a Drink Containing Alcohol: Monthly or less Recent Travel in [facility] within the Last 8 Weeks: No Recent Out of Country Travel within the Last 8 Weeks: No Immunization History Tetanus Immunization: <5 Years Medications and Allergies Allergies Allergy/AdvReac Type Severity Reaction Status Date / Time No Known Allergies Allergy Verified 03/14/18 07:22 Home Medications Medication Instructions Recorded Confirmed Type albuterol sulfate 1.25 mg INHALATION QID PRN 03/14/18 03/14/18 History insulin NPH isoph U-100 human 14 units SUBCUT ACHS 03/14/18 03/14/18 History [Novolin N NPH U-100 Insulin] Active Medications: Active Medications Acetaminophen (Tylenol) 650 mg PO Q4H PRN PRN Reason: Temp > 100.4 Al Hydroxide/Mg Hydroxide (Milk Of Magnesia Liq) 30 ml PO Q12H PRN PRN Reason: Mild Constipation Albuterol (Duoneb Neb (Marta)) 1 ampul NEB Q4HR NEB MARTA Bisacodyl (Dulcolax Supp) 10 mg RECTAL DAILY PRN PRN Reason: SEVERE CONSITIPATION Dextrose (D50w Vial) 50 ml IV.PUSH UNSCH PRN PRN Reason: PER HYPOGLYCEMIA PROTOCOL Glucagon (Glucagon Inj) 1 mg OTHER PRN PRN PRN Reason: for Hypoglycemia Protocol Guaifenesin/Codeine Phosphate (Robitussin Ac Liq) 10 ml PO Q6H PRN PRN Reason: COUGH Insulin Human NPH (Novolin N Inj) 14 units SQ ACHS MARTA Insulin Human Regular (Novolin R Correctional Sugar Inj) 0 units SQ ACHS MARTA; Protocol Lactulose (Lactulose Liq) 30 ml PO DAILY PRN PRN Reason: SEVERE CONSITIPATION Methylprednisolone Sodium Succinate (Solumedrol Inj) 60 mg IV.PUSH Q6H MARTA Ondansetron HCl (Zofran Inj) 4 mg IV.PUSH Q6H PRN PRN Reason: NAUSEA OR VOMITING Senna/Docusate Sodium (Amelie-Colace) 1 tab PO BID MARTA Sennosides (Senokot) 17.2 mg PO Q12H PRN PRN Reason: Moderate Constipation Sodium Chloride (Ns Flush) 2 ml IV.FLUSH BID MARTA Sodium Chloride (Ns Flush) 2 ml IV.FLUSH PRN PRN PRN Reason: FLUSH AFTER USING IV ACCESS Sodium Chloride (Ns Flush) 2 ml IV.FLUSH BID MARTA Sodium Chloride (Ns Flush) 2 ml IV.FLUSH PRN PRN PRN Reason: FLUSH AFTER USING IV ACCESS Physical Exam Vital signs: Last Vital Signs Temp 98.0 F 03/14/18 07:16 Pulse 111 H 03/14/18 09:25 Resp 15 03/14/18 09:25 BP 134/81 03/14/18 09:05 Pulse Ox 96 03/14/18 11:21 Intake & Output 03/12/18 03/13/18 03/14/18 03/15/18 06:59 06:59 06:59 06:59 Weight 72.575 kg Constitutional mild distress Routine HEENT Exam Head: Present normocephalic and atraumatic Eye: Present PERRL and normal accommodation ENT: Present mucous membranes moist Routine Neck Exam Present supple and trachea midline; Absent JVD and tracheal deviation Routine Respiratory Exam Present wheezes (bilateral inspiratory and expiratory) Routine Cardiovascular Exam Present RRR, S1 and S2 Routine Abdominal Exam Present soft; Absent tenderness and distended Routine Extremities Exam Absent cyanosis Routine Skin Exam Present intact and dry Routine Neurological Exam Present alert, oriented X3 and CN II-XII intact; Absent sensory deficit and altered mental status Routine Psychiatric Exam Present normal affect, normal thought process, cooperative, good insight and good judgment Results Labs CBC & Chem 7: 03/14/18 07:34 03/14/18 07:34 Imaging Impressions Chest X-Ray 03/14/18 07:26 CONCLUSION: Negative examination. Caprini VTE Risk Assessment Caprini VTE Risk Assessment: No/Low Risk (score <= 1) Caprini Risk Assessment Model: Point Value = 1 Point Value = 2 Point Value = 3 Point Value = 5 Age 41-60 Minor surgery BMI > 25 kg/m2 Swollen legs Varicose veins or History of unexplained or recurrent spontaneous Oral contraceptives or hormone replacement Sepsis (< 1 month) Serious lung disease, including pneumonia (< 1 month) Abnormal pulmonary function Acute myocardial infarction Congestive heart failure (< 1 month) History of inflammatory bowel disease Medical patient at bed rest Age 61-74 Arthroscopic surgery Major open surgery (> 45 min) Laparoscopic surgery (> 45 min) Malignancy Confined to bed (> 72 hours) Immobilizing plaster cast Central venous access Age >= 75 History of VTE Family history of VTE Factor V Leiden Prothrombin [id number] Lupus anticoagulant Anticardiolipin antibodies Elevated serum homocysteine Heparin-induced thrombocytopenia Other congenital or acquired thrombophilia Stroke (< 1 month) Elective arthroplasty Hip, pelvis, or leg fracture Acute spinal cord injury (< 1 month) Prophylaxis Regimen: Total Risk Factor Score Risk Level Prophylaxis Regimen 0-1 Low Early ambulation 2 Moderate Order ONE of the following: *Sequential Compression Device (SCD) *Heparin 5000 units SQ BID 3-4 Higher Order ONE of the following medications: *Heparin 5000 units SQ TID *Enoxaparin/Lovenox 40 mg SQ daily (WT < 150 kg, CrCl > 30 mL/min) *Enoxaparin/Lovenox 30 mg SQ daily (WT < 150 kg, CrCl > 10-29 mL/min) *Enoxaparin/Lovenox 30 mg SQ BID (WT < 150 kg, CrCl > 30 mL/min) AND/OR *Sequential Compression Device (SCD) 5 or more Highest Order ONE of the following medications: *Heparin 5000 units SQ TID (Preferred with Epidurals) *Enoxaparin/Lovenox 40 mg SQ daily (WT < 150 kg, CrCl > 30 mL/min) *Enoxaparin/Lovenox 30 mg SQ daily (WT < 150 kg, CrCl > 10-29 mL/min) *Enoxaparin/Lovenox 30 mg SQ BID (WT < 150 kg, CrCl > 30 mL/min) AND *Sequential Compression Device (SCD) Assessment and Plan Plan Patient is a 28 year old female with a past medical history significant for asthma, DKA and diabetes mellitus. She presented after awakening with worsening shortness of breath and wheezing upon awakening this morning. Acute hypoxic respiratory failure. Patient will be admitted to the medical telemetry floor. We will continue duonebs every 4 hrs scheduled. Solumedrol IV. Supplemental O2 PRN to maintain sats > 90%. We will check Influenza A&B antigen and respiratory pathogen panel. Acute asthma exacerbation. See treatment plan as outlined above. Diabetes mellitus with hyperglycemia. Resume patients NPH insulin 17 units QAM & 14 units HS. Accuchecks ac/hs with SSI. ADA diet. Last A1c level 19.4 2017. Recheck A1c level. Tachycardia, likely multifactorial secondary to acute hypoxic respiratory failure, asthma exacerbation and recent duoneb administration. Monitor on telemetry. MDM: self Code: Full GI ppx: PO intake DVT ppx: Heparin Subcu Further orders pending clinical course and patients response to therapy. Code Status: Full Discussed Condition With: RN, patient Discharge Planning: Home once medically optimized
[2018-03-14 11:33] LABS: ABG PCO2 40 mmHg (38-42); ABG PO2 71 mmHg (61-120)
[2018-03-14 14:23] LABS: Hemoglobin A1c 14.5 % (4.3-6.0)
[2018-03-14] MEDS: MethylPREDNISolone Sod Succinate Inj 125 MG/2 ML Vial IV.PUSH SCH ×2 (15:35→21:06)
[2018-03-14] MEDS ORDERED: Insulin NovoLIN Regular Correctional Sugar Inj SQ SCH ×2 (17:00→18:45)
[2018-03-14] MEDS: Heparin - SQ 10,000 UNITS/ML Vial SQ SCH (21:06)
[2018-03-14] MEDS: Senna/Docusate Sodium 8.6/50 MG Tablet PO SCH (21:07)
[2018-03-14] MEDS: Insulin NovoLIN Regular Correctional Sugar Inj SQ SCH (21:19)
[2018-03-15] MEDS: MethylPREDNISolone Sod Succinate Inj 125 MG/2 ML Vial IV.PUSH SCH ×4 (02:14→20:43)
[2018-03-15] MEDS: Heparin - SQ 10,000 UNITS/ML Vial SQ SCH ×2 (09:19→20:43)
[2018-03-15] MEDS: Senna/Docusate Sodium 8.6/50 MG Tablet PO SCH ×2 (09:19→20:43)
[2018-03-15] MEDS: Insulin NovoLIN Regular Correctional Sugar Inj SQ SCH ×4 (09:21→20:47)
--- NOTE | 2018-03-15 15:19 | P.PNIM ---
Subjective Interval history: 28-year-old female admitted twice in the last month for asthma exacerbation. She states that this is not uncommon for her when the weather begins to change. We had a discussion about possible external triggers that could be on weather, including diet. She is still not at her baseline and understands that discharging to early [facility] quick return. Physical Exam Vital signs: Last Vital Signs Temp 98.0 F 03/15/18 12:00 Pulse 104 H 03/15/18 12:38 Resp 20 03/15/18 12:38 BP 122/57 L 03/15/18 12:00 Pulse Ox 96 03/15/18 12:00 Intake & Output 03/13/18 03/14/18 03/15/18 03/16/18 06:59 06:59 06:59 06:59 Intake Total 1899 Balance 1899 Weight 88.8 kg Narrative: GENERAL: AAOx3, no acute distress SKIN: Warm and dry. No rashes HEAD: Atruamtic, normocephalic. EYES: No scleral icterus. No injection or drainage. ENT: Moist mucous membranes, patent nares, no erythema of oropharynx. NECK: Supple, trachea midline. No JVD or lymphadenopathy. Normal thyroid. CARDIOVASCULAR: Regular rate and rhythm. No murmurs, gallops, or rubs. RESPIRATORY: Moderate scattered wheezing throughout bilateral lungs. No accessory muscle use. GASTROINTESTINAL: Abdomen soft, non-tender, nondistended, normal active bowel sounds MUSCULOSKELETAL: No cyanosis, or edema. NEURO: CN II-XII grossly intact, no focal deficits, no slurring of speech Results Labs CBC & Chem 7: 03/14/18 07:34 03/14/18 17:30 Labs: Microbiology 03/14/18 18:05 Nasal Wash Influenza Types A,B Antigen - Final Negative for FLU A and B antigen Infection due to influenza A or B cannot be ruled out since the antigen present in the sample may be below the detection limit of the test. Assessment and Plan Plan Asthma exacerbation Continue Solu-Medrol 60 mg IV every 6 hours Added budesonide nebs Continue duo nebs every 4 hours scheduled, supplemental oxygen Reevaluate progress tomorrow Hyperglycemia, insulin-dependent diabetes Exacerbated by use of steroids Continue high-dose sliding scale and baseline insulin coverage DVT prophylaxis Heparin Progress Note: Quality VTE Deep Vein Thrombosis/Pulmonary Embolism Present on Admission: No
[2018-03-16] MEDS: MethylPREDNISolone Sod Succinate Inj 125 MG/2 ML Vial IV.PUSH SCH ×3 (02:06→14:44)
[2018-03-16] MEDS: Heparin - SQ 10,000 UNITS/ML Vial SQ SCH (08:10)
[2018-03-16] MEDS: Insulin NovoLIN Regular Correctional Sugar Inj SQ SCH ×2 (08:12→11:57)
[2018-03-16] MEDS: Senna/Docusate Sodium 8.6/50 MG Tablet PO SCH (08:13)
--- NOTE | 2018-03-16 11:52 | P.DS ---
DS: Providers Date of admission: 03/14/18 10:07 Primary care physician: No Primary Care Physician Brief History from admission: Patient is a pleasant 28 y/o female with a past medical history significant for asthma and diabetes mellitus. Patient reports severe shortness of breath and wheezing upon awakening this morning. She has used her Albuterol inhaler with no relief in her symptoms. She denies chest pain /discomfort. Reports nonproductive cough. She believes the recent weather change may have been contributing to her worsening symptoms. Patient denies fevers or chills. Patient has had prior hospitalizations for acute asthma exacerbations and one 2016 that required intubation. Patient's O2 sat was noted to be 89% on room air in ED. She received 6 duoneb treatments with slight improvement in her symptoms. Patients white blood cell count is elevated at 16.4. Her chest x-ray shows no acute process. An ABG was completed and unremarkable. Patient continues to remain with diffuse inspiratory and expiratory wheezing. She is being admitted under the care of the Hospitalist service for continued evaluation and management of her symptoms. DS: Summary 28-year-old female who presented to the ER with a second asthma exacerbation in 1 month. Stated that she has a history of asthma exacerbations when the weather changes) come through. Yesterday she was still on supplemental oxygen in order to maintain saturations above 95%, budesonide nebulizer was added and today she is off of oxygen. Her lungs still demonstrate moderate wheezing, but her air passage is adequate she states she feels at a point where she could manage this at home. We discussed the plan starting yesterday to help prevent hospitalizations by utilizing prednisone to curb exacerbations before they become bad enough to come to the ER. She has a nebulizer machine at home and I am sending her home with equivalent doses of the DuoNeb she is receiving here as well as budesonide nebs. She has been hyperglycemic due to steroid use, and sending her home on a high-dose sliding scale with extra insulin if she needs it. She will be receiving a single higher dose of Solu-Medrol to provide a taper over the next 1-3 days as well as a Medrol Dosepak. She was instructed to return to the ER immediately she has any worsening of her symptoms. Time Spent with Patient Total time spent providing and/or coordinating discharge services:30 minutes Quality: VTE Deep Vein Thrombosis/Pulmonary Embolism Present on Admission: No Results Labs on day of discharge: Labs from last 24 hours 03/16/18 03/15/18 03/15/18 07:54 20:46 17:00 POC Glucose 271 H 348 H 228 H Adenovirus (PCR) Bordetella holmesii PCR B. pertussis DNA (PCR) B. paraper/bronch (PCR) Human Metapneumovir PCR Influenza A (RT-PCR) Influenza A (H1) PCR Influenza A (H3) PCR Influenza B (RT-PCR) Parainfluenza 1 (PCR) Parainfluenza 2 (PCR) Parainfluenza 3 (PCR) Parainfluenza 4 (PCR) RSV Type A (PCR) RSV Type B (PCR) Rhinovirus (PCR) 03/15/18 03/14/18 11:50 18:05 POC Glucose 367 H Adenovirus (PCR) Cancelled Bordetella holmesii PCR Cancelled B. pertussis DNA (PCR) Cancelled B. paraper/bronch (PCR) Cancelled Human Metapneumovir PCR Cancelled Influenza A (RT-PCR) Cancelled Influenza A (H1) PCR Cancelled Influenza A (H3) PCR Cancelled Influenza B (RT-PCR) Cancelled Parainfluenza 1 (PCR) Cancelled Parainfluenza 2 (PCR) Cancelled Parainfluenza 3 (PCR) Cancelled Parainfluenza 4 (PCR) Cancelled RSV Type A (PCR) Cancelled RSV Type B (PCR) Cancelled Rhinovirus (PCR) Cancelled Impressions ITS Impressions Chest X-Ray 03/14/18 07:26 CONCLUSION: Negative examination. Discharge Plan Discharge Disposition Patient Disposition: 01 Discharge Home Discharge Condition Condition: Stable Discharge Order Discharge Orders: Discharge Order (Routine); Ordered 03/16/18 Ordered By: Elder Ramos Discharge Details Anticipated Discharge Date: 03/16/18 Physicians Team Primary Care Provider: Primary Care Ebony Martinez Attending Provider: Elder Ramos Rxs /Orders / Referrals /Forms Prescriptions: New ipratropium-albuterol 0.5 mg-3 mg(2.5 mg base)/3 mL Solution For Nebulization 3 ml NEB Q4HR NEB PRN (Reason: Wheezing) Qty: 180 RF: 0 insulin regular human [Novolin R Regular U-100 Insuln] 100 unit/mL Solution 1 unit subcut ACHS PRN (Reason: hyperglycemia) Qty: 10 RF: 0 albuterol sulfate [Ventolin HFA] 90 mcg/actuation HFA aerosol inhaler 2 inh INHALATION Q4-6H PRN (Reason: shortness of breath or wheezing) Qty: 6.7 RF: 3 budesonide 0.5 mg/2 mL suspension for nebulization 2 ml INHALATION BID Qty: 60 RF: 0 methylprednisolone [Medrol (Aníbal)] 4 mg tablets,dose pack See Label Instructions PO PER PKG DIR Qty: 21 RF: 0 prednisone 20 mg tablet 20 mg PO BID 5 Days Qty: 10 RF: 1 Continue insulin syringe,safetyneedle [BD SafetyGlide Insulin Syringe] 1 mL 31 gauge x 15/64" Syringe Qty: 100 RF: 0 insulin NPH isoph U-100 human [Novolin N NPH U-100 Insulin] 100 unit/mL suspension 14 units subcut ACHS RF: 0 Discontinued albuterol sulfate 1.25 mg/3 mL Solution For Nebulization 1.25 mg INHALATION QID PRN (Reason: Shortness Of Breath) RF: 0 Referrals: Primary Care Rebecai,No [Primary Care Provider] - See Instructions (Please call to schedule follow up with your Primary Care Doctor or you can follow up with: [employer] [phone] [place] [address] *[employer] offers same day APPT. Call the morning you would like to be seen Office opens at 8:00am ) Discharge Instructions Patient Printed Instructions: Albuterol (By breathing), Ipratropium (By breathing), Prednisone (By mouth), Methylprednisolone (By mouth), Budesonide ( By breathing), Insulin Regular (By injection), Asthma (DC) Status ED Status: Left Department
[2018-03-16] MEDS ORDERED: MethylPREDNISolone Sod Succinate Inj 125 MG/2 ML Vial IV.PUSH ONE (12:00)
== END 2018-03-16 15:17 | disposition home or self-care (01) ==
LOC: NEPC 07:14 → NEDA 07:14 → N07 12:20
PROVIDERS: ADMIT Family Medicine; ATTEND Family Medicine